=== PATIENT | female | born 1940 | race Caucasian/White ===

== ENCOUNTER 2017-04-28 10:59 | Inpatient (IN) ==
[2017-04-28] MEDS ORDERED: NITROGLYCERIN SL 0.4 MG TABLET SL PRN (11:10)
[2017-04-28] MEDS ORDERED: ENOXAPARIN 100 MG/ML SYRINGE SUBCUT STA (11:10)
[2017-04-28] MEDS ORDERED: ASPIRIN 325 MG TABLET PO STA (11:10)
[2017-04-28] MEDS ORDERED: ENOXAPARIN 80 MG/0.8 ML SYRINGE SUBCUT ONE (11:12)
[2017-04-28] MEDS ORDERED: MIDAZOLAM 2 MG/2 ML VIAL ONE (11:16)
[2017-04-28] MEDS ORDERED: LIDOCAINE 1%/EPI INJ 20 ML VIAL ONE (11:16)
[2017-04-28] MEDS ORDERED: fentaNYL 100 MCG/2 ML VIAL ONE (11:16)
[2017-04-28] MEDS ORDERED: HEPARIN/NACL 0.9% 2 UNITS/ML 1,500 ML IV ONE (11:16)
--- NOTE | 2017-04-28 11:23 | Emergency Department Note ---
Andriy Cheney Hilary, am scribing for, and in the presence of, Kaveh Figueroa MD 11:14. Henry Cheney Phillip K, MD, personally performed the services described in this documentation, ascribed by Isamar Ashraf in my presence, and it is both accurate and complete . Arrival - Arrival Chief Complaint: Chest Pain Stated Complaint: Chest Pain ED Nursing Triage Note: Patient presents via EMS from home with a complaint of chest pain that started this morning at 9am while she was doing house work. States she got short of breath. Took ASA 81 mg PO, then 2 additional 325mg PO ED EDUCATIONAL AIDE of EMS. EMS administered 2 nitro but she states it only helped "a little. Described as pressure in nature throbbing sensation. Denies nausea or vomiting. 2 MS in the past no stents Mode of Arrival: Stretcher Limitations: No Limitations Source: Patient, RN Notes Reviewed - History of Present Illness HPI Narrative: Pt is a 76 y/o female brought to the ED via EMS with c/o chest pain which onset 0900. Pt states that she was doing light house work when her symptoms started. She confirms SOB and Chest pain that radiates to both shoulders and down both arms but denies nausea, vomiting or diaphoresis. Pt had a Heart Attack in 2000 but no Hx of stents or bypass. No other complaints or problems stated in the ED. Onset (ago): hour(s) Consistency: constant Severity: moderate Severity scale (1-10): 3 Quality: other (throbbing) Date of Last Menstrual Period: Hyst Allergies/Adverse Reactions: Allergies Allergy/AdvReac Type Severity Reaction Status Date / Time Sulfa (Sulfonamide Allergy Swelling Verified 03/15/15 11:58 Antibiotics) of Lip/Tongue/Throat Home Medications: Home Medications Medication Instructions Recorded Confirmed Type Aspirin [Ecotrin] 81 mg PO DAILY 03/15/15 04/15/16 History Carvedilol [Coreg] 12.5 mg PO BID 03/15/15 04/15/16 History Cyanocobalamin Tab [Vitamin B12 2,500 meq PO DAILY 03/15/15 04/15/16 History Tab] Diltiazem Cd Cap [Cardizem CD] 180 mg PO DAILY 03/15/15 04/15/16 History Isosorbide Mononitrate [Imdur] 30 mg PO DAILY 03/15/15 04/15/16 History Potassium Chloride Cap/Tab [K Dur] 10 meq PO DAILY 03/15/15 04/15/16 History Pregabalin [Lyrica] 150 mg PO TID 03/15/15 04/15/16 History Simvastatin [Zocor] 20 mg PO DAILY 03/15/15 04/15/16 History buPROPion [Wellbutrin] 100 mg PO BID 03/15/15 04/15/16 History Clopidogrel [Plavix] 75 mg PO DAILY tablet 05/04/15 04/15/16 Rx Esomeprazole Magnesium [Nexium] 40 mg PO DAILY 07/25/15 04/15/16 History Docusate Sodium Cap [Colace Cap] 200 mg PO BEDTIME 04/15/16 04/15/16 History Oxycodone HCl/Acetaminophen 10 - 325 mg PO Q6H 04/15/16 04/15/16 History [Percocet 10-325 mg Tablet] Hydrocortisone Tab [Cortef Tab] 15 mg PO QPM #0 tablet 04/16/16 Rx Hydrocortisone Tab [Cortef Tab] 25 mg PO QAM #0 tablet 04/16/16 Rx oxyCODONE/ACETAMINOPHEN 5-325 2 tablet PO Q6H PRN #0 tablet 04/16/16 Rx [Percocet 5-325] traMADol TAB [Ultram] 50 mg PO BID tablet 04/16/16 Rx Review of System - Review of System 12 point system: reviewed and no additional remarkable complaints except as stated - Review of System Constitutional: Absent: diaphoresis, fever Respiratory: Present: respiratory distress (SOB). Absent: cough Cardiovascular: Present: chest pain Gastrointestinal: Absent: nausea, vomiting Medical,Surgical,& Family Hx - Medical History Cardio: History of: CAD (status post angioplasty twice), Hypertension, MS Psychological: History of: Depression Neurology: No history of: Seizures Endocrine: History of: Adrenal Disease (Kevin's disease), Dyslipidemia, Endocrine Problems (Addisons, Fibromyalgia) Rheumatology: History of;: Rheumatological Problems (chronic back pain) Gastrointestinal: History of: GERD Musculoskeletal: History of: Musculoskeletal Problems (chronic back pain) - Surgical History Neurologic Surgeries: Patient denies: Neurologic Surgery Reproductive Surgeries: Surgical HX of;: Genitourinary Surgery (bladder suspension and rectocele surgery), Gynecologic Surgery, Hysterectomy (PARTIAL HYSTERECTOMY) - Family History Family History: Reports;: Family Cancer, Family Heart Disease, Family Hypertension - Social History Smoking Status: Never smoker Frequency of Alcohol Use: None Type of Drug Use: None Exam Vital Signs: Vital Signs Temperature 97.9 F 04/28/17 11:00 Pulse Rate 70 04/28/17 11:00 Respiratory Rate 18 04/28/17 11:00 O2 Sat by Pulse Oximetry 96 04/28/17 11:00 - General General appearance: alert, in no apparent distress - Head Head exam: Present: atraumatic, normocephalic - Eye Eye exam: Present: normal appearance, PERRL, EOMI - ENT ENT exam: Present: mucous membranes moist, TM's normal bilaterally. Absent: mucous membranes dry - Neck Neck exam: Present: full ROM, trachea midline. Absent: tenderness - Chest Chest inspection: Present: symmetric chest wall rise. Absent: tenderness - Respiratory Respiratory exam: Present: normal lung sounds bilaterally. Absent: respiratory distress - Cardiovascular Cardiovascular exam: Present: regular rate, normal rhythm, normal heart sounds. Absent: murmur, rubs, gallop - Abdominal Exam Abdominal exam: Present: soft, normal bowel sounds. Absent: distention, tenderness - Extremities Exam Extremities exam: Present: full ROM. Absent: tenderness - Back Exam Back exam: Present: full ROM. Absent: tenderness - Neurological Exam Neurological exam: Present: alert, oriented X3, CN II-XII intact. Absent: motor sensory deficit - Psychiatric Psychiatric exam: Present: normal affect, normal mood - Skin Skin exam: Present: warm, dry, intact, normal color. Absent: rash Course Course Narrative: All labs and x-ray are presently pending. Dr. Orona saw patient in the ED within several minutes of my consult. She will be taken straight to the [facility]. Results - EKG EKG results: interpreted by ERMRadha, sinus rhythm (ST elevation MS laterally and possibly inferiorly) Disposition Clinical Impression: ST elevation myocardial infarction (STEMI) Case discussed with: patient, patient's family Disposition: Still a Patient Condition: Guarded
[2017-04-28] MEDS ORDERED: MORPHINE 10 MG/1 ML VIAL ONE (11:27)
[2017-04-28 11:28] LABS: Basophils % 0.3 % (0.0-0.8); Eosinophils % 0.2 % (0.00-10.9); Hematocrit 41.1 VOL% (35.7-47.0); Hemoglobin 13.6 GM/DL (12.0-16.0); Immature Granulocytes % 0.6 %; Immature Granulocytes Absolute 0.06 #; Lymphocytes # 1.1 10*3/uL (1.4-4.0); Lymphocytes % 11.6 % (21.3-54.2); Mean Corpuscular HGB Conc 33.1 GM/DL (32-36); Mean Corpuscular Hemoglobin 34 PG (27-34); Mean Corpuscular Volume 102.8 FL (87-102); Mean Platelet Volume 9.7 FL (9.6-12.0); Monocytes # 0.5 10*3/uL (0.11-0.8); Monocytes % 4.9 % (1.7-12.7); Neutrophils # 7.7 10*3/uL (1.4-7.4); Neutrophils % 82.4 % (38.7-73.9); Platelet Count 267 T/CUMM (130-400); Red Cell Distribution Width 12.6 % (9.3-17.3); White Blood Count 9.4 T/CUMM (4-12)
[2017-04-28] MEDS ORDERED: EPTIFIBATIDE 75 MG/100 ML BOTTLE IV ONE (11:38)
[2017-04-28] MEDS ORDERED: EPTIFIBATIDE 20,000 MCG/10 ML VIAL ONE (11:38)
[2017-04-28] MEDS ORDERED: NITROGLYCERIN DRIP 50 MG/250 ML BOTTLE IV SCH (11:38)
[2017-04-28] MEDS ORDERED: ENOXAPARIN 60 MG/0.6 ML SYRINGE ONE (11:40)
[2017-04-28] MEDS: EPTIFIBATIDE 75 MG/100 ML BOTTLE IV SCH ×2 (11:46→19:51)
[2017-04-28] MEDS ORDERED: TICAGRELOR 90 MG TABLET ONE (11:54)
[2017-04-28 12:06] LABS: Albumin 3.7 G/DL (3.4-5.0); Bilirubin,Total 0.9 MG/DL (0.2-1.0); Calcium 9.2 MG/DL (8.5-10.1); Magnesium 2.5 MG/DL (1.8-2.4); Osmolality,Calculated 281.1 MOS/KG (273-304); Potassium 3.9 MMOL/L (3.5-5.1); Total Protein 6.7 G/DL (6.4-8.3)
--- NOTE | 2017-04-28 12:37 | Cardiac Catheterization ---
Date of Procedure:: 04/28/17 Pre-op Diagnosis: 76-year-old presents with chest discomfort [address] elevation in the inferolateral leads for emergent evaluation and intervention if possible/indicated Post-op diagnosis: same Procedure: Clinical summary: 76-year-old lady with a history of coronary disease presents with ST elevation in the inferolateral leads consistent with an acute inferolateral myocardial infarction. She is for emergent evaluation and PCI if indicated. Description procedure Procedure performed: 1: Left heart catheterization 2: Coronary angiography 3: Attempted wiring of distal LAD which was aborted due to severe tortuosity and given the distal nature of the lesion not felt to be amenable to PCI 4: Left ventriculography 5: Abdominal aortography 6: Right femoral sheath angiography 7: Angio-Seal closure right femoral arteriotomy site Description of procedure: After obtaining informed consent the patient brought to the [facility] Analyst emergently where the right groin was prepped and draped in the usual sterile manner. Using intravenous sedation and local anesthesia a needle was inserted into the right femoral artery without difficulty and a 6 Kosovan sheath was positioned without difficulty. In a.m. Juan M right coronary catheter was advanced over guidewire under fluoroscopic control deviation aorta where the right coronary was engaged and multiple angiograms the right coronary taken multiple views. After adequate angiograms the right coronary obtained this catheter was withdrawn and exchanged over guidewire for a Dulce left guide. Multiple angiograms of the left coronary were undertaken multiple views. This catheter was manipulated into the ostium of the left main using fluoroscopy. After adequate angiograms left coronary obtained this catheter was used to attempt passing a 014 BMW wire to the distal LAD where the occlusion was noted. After multiple attempts we felt that the return on wire placement into the distal LAD was not worth the potential risk related to the wire damage of the vessel proximally. There were multiple 180 bends proximal to the occlusion which would in my opinion not have allowed balloon placement across the area of occlusion. For that reason the wire was removed. Repeat angiography confirmed no evidence of proximal dissection with JOY grade III flow down the vessel noted. The occlusion appeared to be improving somewhat with Integrilin. The patient's pain was easing at the time of aborting the PCI. Patient then underwent removal of the guide catheter over a wire and a pigtail ventriculographic catheter was advanced over guidewire under fluoroscopic control to the ascending aorta where was passed across the aortic valve and ventriculography was obtained in the REYES projection. After completion of ventriculography, pullback was obtained from the ventricle to the aorta and the catheter was pulled back to the level of the diaphragm where 35 cc of contrast were injected at 12 cc/s to assess the abdominal aortic aneurysm. After completion of this injection this catheter was removed over a wire. The patient then underwent right femoral sheath angiography which demonstrated anatomy appropriate for Angio-Seal closure. This was performed without difficulty. Hemostasis was obtained. The patient then after appropriate observation was transferred to the CCU in stable condition. Hemodynamics: Please see coming data sheet Coronary arteriography: Right coronary artery: The right coronary is a large dominant vessel it possesses no significant lesions through its course. The branches of the right coronary likewise are free of significant obstructing lesions. Left coronary artery: Left main coronary is well-developed and free of significant obstructing lesions. The circumflex coronary artery is a large nondominant vessel that possesses no significant lesions through its course. The branches of the circumflex likewise are free of significant obstructing lesions Left anterior descending coronary is a large vessel that extends to the apex of the ventricle. In the distal portion of the LAD there is a total occlusion with very faint filling of the apical portion of the LAD noted. This is a very tortuous and angulated vessel through its proximal and mid one third. There are multiple 180 bends noted. There is no filling of the LAD beyond the apical portion of the LAD. Attempted PCI: We were able to pass a BMW wire to the proximal segment of the occlusion but because of multiple severely angulated segments we elected to abort the procedure as it was unlikely going to be any significant chance of getting a balloon to the area of stenosis. Left ventriculography: After injection of contrast left ventricle is known to be of normal size with an area of apical marked hypo-/akinesis. Overall ejection fraction measures in the 50-55% range. Mitral and aortic structures appear normal by ventriculography. Abdominal aortography: After injection of contrast into the more proximal abdominal aorta there appears to be marked angulation of the abdominal aorta related to the patient's known scoliosis. She has an aneurysm of the abdominal aorta below the level of the renal arteries which appears to be fusiform and moderate in size. Right femoral sheath angiography: After injection of contrast of the right femoral arterial sheath it appears to enter the common femoral above the bifurcation. No significant disease in the distal iliac, common femoral or bifurcation be noted based on this limited angiographic study. Conclusions: 1: Occlusion of the apical portion of the LAD not amenable to PCI for continued medical therapy 2: No other significant occlusive coronary disease noted of the right coronary or LAD/circumflex 3: Apical hypo-/akinesis ejection fraction in the 55% range 4: Fusiform abdominal aortic aneurysm for continued surveillance 5: Angio-Seal closure right femoral arteriotomy site Discussion and recommendations: This patient presents with an acute inferolateral myocardial infarction related to occlusion of the very distal portion of her LAD. She has severe tortuosity of the vessel with multiple 180 bends. I think the best approach is going to be conservative at this point as the vessel is extremely hard to get a wire to the area occlusion and my plan is to treat this conservatively at this point. I have reviewed with the family and with the patient our plans for continued medical management. Surgeon / Physician: Carlitos Orona - Medications / Follow-up
[2017-04-28] MEDS ORDERED: ONDANSETRON 4 MG/2 ML VIAL IV PRN (12:45)
[2017-04-28] MEDS ORDERED: MAGNESIUM SULF RIDER 2 GM in PREMIX 1 EACH IV PRN (12:45)
--- NOTE | 2017-04-28 13:05 | EKG Report ---
Stationary ECG Study [facility] Test Date: 04/28/2017 1:02:55 PM Pat Name: EDWARD FLORES Department: Room: 130 Gender: F Provider Network Analyst: : 1940 Requested by: Carlitos Orona Order Number: [id number] Reading MD: TARA MALONE Intervals [place] Rate: 63 P: 68 [place]: 184 QRS: 5 QRSD: 101 T: 53 QT: 422 QTc: 429 Interpretive Statements SINUS RHYTHM at [address] ELEVATION, CONSIDER ANTERIOR INJURY ACUTE [place] Electronically Signed On 04-29-17 08:13:29 CDT by TARA MALONE [email or web address]
--- NOTE | 2017-04-28 13:14 | EKG Report ---
Stationary ECG Study [facility] Test Date: 04/28/2017 11:05:40 AM Pat Name: EDWARD FLORES Department: Room: 130 Gender: F Executive Administrator: : 1940 Requested by: Kaveh Guerrero Order Number: [id number] Reading MD: MIKAELA JUAREZ Intervals [place] Rate: 65 P: 38 [place]: 188 QRS: 5 QRSD: 113 T: 70 QT: 402 QTc: 414 Interpretive Statements SINUS RHYTHM MODERATE INTRAVENTRICULAR CONDUCTION DELAY ST ELEVATION, CONSIDER ANTERIOR INJURY ST ELEVATION, CONSIDER INFERIOR INJURY ACUTE [place] THIS PATTERN MAY REPRESENT EARLY REPOLARIZATION. Electronically Signed On 04-29-17 06:32:23 CDT by MIKAELA JUAREZ [email or web address]
[2017-04-28 13:19] LABS: Basophils % 0.3 % (0.0-0.8); Eosinophils % 0.1 % (0.00-10.9); Hematocrit 39.5 VOL% (35.7-47.0); Hemoglobin 12.9 GM/DL (12.0-16.0); Immature Granulocytes % 0.6 %; Immature Granulocytes Absolute 0.05 #; Lymphocytes # 1.2 10*3/uL (1.4-4.0); Lymphocytes % 13.5 % (21.3-54.2); Mean Corpuscular HGB Conc 32.7 GM/DL (32-36); Mean Corpuscular Hemoglobin 34 PG (27-34); Mean Corpuscular Volume 103.7 FL (87-102); Mean Platelet Volume 9.8 FL (9.6-12.0); Monocytes # 0.3 10*3/uL (0.11-0.8); Monocytes % 3.7 % (1.7-12.7); Neutrophils # 7.3 10*3/uL (1.4-7.4); Neutrophils % 81.8 % (38.7-73.9); Platelet Count 257 T/CUMM (130-400); Red Blood Count 3.81 MC/CUMM (3.8-5.5); Red Cell Distribution Width 12.9 % (9.3-17.3)
--- NOTE | 2017-04-28 13:27 | XRay Report ---
XR chest 1V portable Indication: Chest pain. Comparison: Chest x-ray 04/15/2016 Technique: Portable AP chest was performed. Findings: The heart size appears within normal limits. Mild/moderate ectasia of the thoracic aorta appears stable. Pulmonary vasculature demonstrates no specific abnormality. Hilar structures demonstrate fairly symmetric appearance. The lungs appear clear. Bones and soft tissues demonstrate no evidence of acute pathology. Surgically repaired right humeral neck is stable in appearance. Impression: 1. No evidence of acute pathology. 04/28/2017 1:23 PM PROCEDURE INTERPRETED AT [facility] DEPARTMENT OF RADIOLOGY Final Report Signed by: Dr. Timmy Camarillo
[2017-04-28] MEDS: METOPROLOL TARTRATE 25 MG TABLET PO SCH ×2 (15:07→20:25)
[2017-04-28] MEDS: SODIUM CHLORIDE 0.45% 1,000 ML IV SCH (15:07)
[2017-04-28] MEDS: MORPHINE 2 MG/1 ML SYRINGE IV PRN ×2 (15:08→20:21)
--- NOTE | 2017-04-28 16:45 | Cardiology History & Physical ---
Elaina Cheney April, RN, am scribing for, and in the presence of, Carlitos Orona MD 16:45. Assessment and Plan - Time spent with patient Time spent with patient: Greater than 30 minutes (Due to assessment, planning, documentation, medication review) (1) ST elevation myocardial infarction (STEMI) Status: Acute Assessment and plan: She was on Plavix previously, this will be changed to Brilinta. She was loaded with Brilinta in the [facility] and Integrilin is currently infusing for her routine Brilinta will start in the morning. She will continue a baby aspirin every day. She will also be changed to Crestor 20 mg daily, Lopressor 25 twice daily, and losartan 25 mg daily. Current Visit: Yes (2) Chest pain Status: Resolved Current Visit: Yes (3) Chronic back pain Status: Chronic Current Visit: Yes (4) Coronary artery disease Status: Acute Current Visit: Yes Qualifiers: Coronary Disease-Associated Artery/Lesion type: [place] artery [place] vs. transplanted heart: [place] cross heart (5) Dyslipidemia Status: Chronic Assessment and plan: She is being started on Crestor. Current Visit: No (6) Essential hypertension Status: Acute Assessment and plan: Her medications have been adjusted, her blood pressures been up since arrival. It has improved some at 174/96 currently. Current Visit: No History of Present Illness Chief complaint: Chest pain History of present illness: Recruiting Internship: Dr. Bates PCP: Dr. Savage LATE ENTRY Ms. Lakhani is a 76 year old female who is routinely followed by Dr. Bates with a history of hypertension, CAD, dyslipidemia, GERD, [place] disease, osteoarthritis, neuropathy, and fibromyalgia. 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 She is also status post a second small non-Q-wave VA due to ruptured plaque in the mid LAD in September 2009, this was also treated medically. She had a normal Lexiscan cardiac stress test done in October 2014 with ejection fraction 58%. Other surgical history includes bilateral cataracts, hysterectomy, rectocele, sinus surgery, bladder suspension, back surgeries, left total knee, and right shoulder. Family history is positive for father with hypertension and VA, mother with rheumatoid arthritis, sister with diabetes, and sons with diabetes and cancer. She presented to the emergency department at [facility] this morning with a sharp steady chest pain that began around 9 AM this morning. She said it was in the center of her chest and did radiate to both shoulders and down both arms. She rated it an 8 or 9 on a scale of 1-10. It was also associated with shortness of breath. There were no triggers or alleviators related to these symptoms. She denies any nausea vomiting or diaphoresis with these symptoms. She continued to have chest pain and shortness of breath upon arrival to the emergency department. Chest x-ray showed no acute pathology. Initial troponin was 0.051, all other labs unremarkable. EKG indicated ST elevation in the inferolateral leads consistent with an acute inferolateral myocardial infarction. She was taken emergently to the [facility] with the following findings and recommendations noted: 1: Occlusion of the apical portion of the LAD not amenable to PCI for continued medical therapy 2: No other significant occlusive coronary disease noted of the right coronary or LAD/circumflex 3: Apical hypo-/akinesis ejection fraction in the 55% range 4: Fusiform abdominal aortic aneurysm for continued surveillance 5: Angio-Seal closure right femoral arteriotomy site Discussion and recommendations: This patient presents with an acute inferolateral myocardial infarction related to occlusion of the very distal portion of her LAD. She has severe tortuosity of the vessel with multiple 180 bends. I think the best approach is going to be conservative at this point as the vessel is extremely hard to get a wire to the area occlusion and my plan is to treat this conservatively at this point. I have reviewed with the family and with the patient our plans for continued medical management. Post cath the patient reports that her chest pain has been relieved. She continues to have some shortness of breath, but states that it is much improved. She denies having any palpitations. Bedside monitor currently shows sinus rhythm with heart rates in the 60s. O2 sat is 96% on room air. Current blood pressure 174/96. She currently has nitroglycerin and Integrilin infusing. Right groin is stable with no evidence of bleeding or hematoma. 2+ pedal pulses present. Troponin done post-cath 0.355. CBC post cath was stable. This patient has apical myocardial infarction related to occlusion of the distal LAD for continued medical therapy. I have discussed in detail the particulars of this case and I have examined the patient and reviewed the patient's chart both current and old. I was directly involved in the patient's evaluation and management and I completely agree with Mónica Delaney RN regarding this patient's evaluation and treatment plan. Home Medications Medication Instructions Recorded Confirmed Type Aspirin [Ecotrin] 81 mg PO DAILY 03/15/15 04/28/17 History Carvedilol [Coreg] 12.5 mg PO BID 03/15/15 04/28/17 History Cyanocobalamin Tab [Vitamin B12 2,500 meq PO DAILY 03/15/15 04/28/17 History Tab] Diltiazem Cd Cap [Cardizem CD] 180 mg PO DAILY 03/15/15 04/28/17 History Isosorbide Mononitrate [Imdur] 30 mg PO DAILY 03/15/15 04/28/17 History Potassium Chloride Cap/Tab [K Dur] 10 meq PO DAILY 03/15/15 04/28/17 History Pregabalin [Lyrica] 150 mg PO TID 03/15/15 04/28/17 History Simvastatin [Zocor] 20 mg PO DAILY 03/15/15 04/28/17 History buPROPion [Wellbutrin] 100 mg PO BID 03/15/15 04/28/17 History Clopidogrel [Plavix] 75 mg PO DAILY tablet 05/04/15 04/28/17 Rx Oxycodone HCl/Acetaminophen 10 - 325 mg PO Q6H 04/15/16 04/28/17 History [Percocet 10-325 mg Tablet] Hydrocortisone Tab [Cortef Tab] 15 mg PO QPM #0 tablet 04/16/16 04/28/17 Rx Hydrocortisone Tab [Cortef Tab] 25 mg PO QAM #0 tablet 04/16/16 04/28/17 Rx Pantoprazole Tab [Protonix Tab] 40 mg PO DAILY 04/28/17 04/28/17 History Allergies Allergy/AdvReac Type Severity Reaction Status Date / Time Sulfa (Sulfonamide Allergy Swelling Verified 03/15/15 11:58 Antibiotics) of Lip/Tongue/Throat - Constitutional Constitutional: Present: as per HPI - EENT Eyes: Present: requires corrective lense. Absent: blurry vision Ears: Present: tinnitus. Absent: decreased hearing, ear pain Nose, mouth and throat: Present: headache(s) (Sinus), neck pain, sinus pressure. Absent: dysphagia, epistaxis, sore throat - Cardiovascular Cardiovascular: Present: chest pain at rest, chest pain with activity, dyspnea, dyspnea on exertion, radiating jaw, neck or arm pain. Absent: diaphoresis, edema, lightheadedness, orthopnea, palpitations - Respiratory Respiratory: Present: dyspnea, dyspnea on exertion. Absent: cough, hemoptysis, wheezing - Gastrointestinal Gastrointestinal: Present: constipation. Absent: abdominal pain, diarrhea, hematemesis, hematochezia, melena, nausea, vomiting - Genitourinary Genitourinary: Absent: dysuria, hematuria - Musculoskeletal Musculoskeletal: Present: back pain, limited range of motion, muscle weakness - Neurological Neurological: Present: abnormal gait, headache(s). Absent: abnormal speech, confusion, dizziness, frequent falls, syncope - Psychiatric Psychiatric: Absent: anxiety, depression - Endocrine Endocrine: Present: fatigue - Hematologic/Lymphatic Hematologic/Lymphatic: Present: easy bruising. Absent: easy bleeding Medical,Surgical,& Family Hx - Medical History Cardio: History of: CAD, Hypertension, VA Endocrine: History of: Adrenal Disease (Holland's disease), Dyslipidemia, Endocrine Problems (Add[place], Fibromyalgia) Rheumatology: History of;: Rheumatological Problems (chronic back pain) Respiratory: History of: Bronchitis, Obstructive Sleep Apnea Gastrointestinal: History of: GERD Musculoskeletal: History of: Musculoskeletal Problems (chronic back pain) - Surgical History Cardiac Surgeries: Sugical HX of: Cardiac Catheterization HEENT Surgeries: Surgical HX of: Eye Surgery (Bilateral cataracts) Reproductive Surgeries: Surgical HX of;: Genitourinary Surgery (bladder suspension and rectocele surgery), Hysterectomy (PARTIAL HYSTERECTOMY) Orthopedic Surgeries: Surgical HX of;: Orthopedic Surgery (Right shoulder), Spinal Surgery (Back), Total Knee Replacement (Left) - Family History Family History: Reports;: Family Cancer (Son with prostate cancer), Family Diabetes (Son and sister), Family Heart Disease (Father), Family Hypertension ( Father) - Social History Smoking Status: Never smoker Have you smoked in the last 12 months: No Frequency of Alcohol Use: None Type of Drug Use: None Marital Status: Lives With:: Spouse Functional capacity: uses cane/walker Cardiology Physical Exam - Constitutional Vitals: Vital Signs Temp Pulse Resp BP Pulse Ox 97.9 F 72 20 176/107 98 04/28/17 11:00 04/28/17 11:15 04/28/17 11:15 04/28/17 11:15 04/28/17 11:15 Intake and Output 04/28/17 04/28/17 04/28/17 06:59 14:59 22:59 Other: Weight 162 lb Patient Weight 04/29/17 06:59 Weight 162 lb General appearance: no acute distress, over weight - Head Head exam: Absent: abrasion, hematoma, laceration - Eye Eye exam: Absent: periorbital swelling, laceration to eyelids Pupils: Present: RENEA - Respiratory Respiratory exam: Present: clear to auscultation bilaterally. Absent: accessory muscle use, chest wall tenderness - Cardiovascular Cardiovascular exam: Present: regular rate and rhythm. Absent: diastolic murmur , rubs, systolic murmur - GI/Abdominal GI/Abdominal exam: Present: normal bowel sounds, soft. Absent: distended, tenderness - Extremities Exam Extremities exam: Present: other (Right groin cath access site without evidence of bleeding or hematoma). Absent: calf tenderness, edema - Neurological Exam Neurological exam: Present: alert, oriented X3 - Psychiatric Psychiatric exam: Present: normal affect, normal mood - Skin Skin exam: Present: warm, dry Result/EKG - Labs CBC & BMP: 04/28/17 13:05 04/28/17 11:13 Lab Results: I have reviewed the past 24 hour labs Labs: Laboratory Results - last 24 hr 04/28/17 04/28/17 04/28/17 11:13 11:13 11:13 WBC 9.4 RBC 4.00 Hgb 13.6 Hct 41.1 MCV 102.8 H MCH 34 MCHC 33.1 RDW 12.6 Plt Count 267 MPV 9.7 Neut % (Auto) 82.4 H Lymph % (Auto) 11.6 L [place] % (Auto) 4.9 Eos % (Auto) 0.2 Baso % (Auto) 0.3 Neut # (Auto) 7.7 H Lymph # (Auto) 1.1 L [place] # (Auto) 0.5 Eos # (Auto) 0.0 Baso # (Auto) 0.0 Immature Gran % 0.6 Nucleated RBC % 0.0 Immature Gran # 0.06 Nucleated RBCs # 0.00 Immature Plt Fraction 0.0 Sodium 142 Potassium 3.9 Chloride 109 H Carbon Dioxide 28 Anion Gap 8.9 BUN 10 Creatinine 0.70 GFR Calculation 87 BUN/Creatinine Ratio 14.00 Glucose 96 Calculated Osmolality 281.1 Calcium 9.2 Magnesium 2.5 H Total Bilirubin 0.90 AST 18 ALT 15 Alkaline Phosphatase 89 Troponin I 0.051 H Total Protein 6.7 Albumin 3.7 Globulin 3.0 Albumin/Globulin Ratio 1.2 04/28/17 04/28/17 13:05 13:05 WBC 9.0 RBC 3.81 Hgb 12.9 Hct 39.5 MCV 103.7 H MCH 34 MCHC 32.7 RDW 12.9 Plt Count 257 MPV 9.8 Neut % (Auto) 81.8 H Lymph % (Auto) 13.5 L [place] % (Auto) 3.7 Eos % (Auto) 0.1 Baso % (Auto) 0.3 Neut # (Auto) 7.3 Lymph # (Auto) 1.2 L [place] # (Auto) 0.3 Eos # (Auto) 0.0 Baso # (Auto) 0.0 Immature Gran % 0.6 Nucleated RBC % 0.0 Immature Gran # 0.05 Nucleated RBCs # 0.00 Immature Plt Fraction 0.0 Sodium Potassium Chloride Carbon Dioxide Anion Gap BUN Creatinine GFR Calculation BUN/Creatinine Ratio Glucose Calculated Osmolality Calcium Magnesium Total Bilirubin AST ALT Alkaline Phosphatase Troponin I 0.355 H D Total Protein Albumin Globulin Albumin/Globulin Ratio - Diagnostic Findings Procedure: Chest x-ray: report reviewed by me - EKG EKG results: interpreted by me EKG shows: sinus rhythm Yeyo Cheney Wesley, MD, personally performed the services described in this documentation, ascribed by Mónica Delaney RN in my presence, and it is both accurate and complete 645 .
[2017-04-28] MEDS ORDERED: cloNIDine 0.1 MG TABLET PO PRN (18:13)
[2017-04-28] MEDS: HYDROCORTISONE 10 MG TABLET PO SCH (19:26)
[2017-04-28] MEDS: cloNIDine 0.1 MG TABLET PO PRN (19:26)
[2017-04-28] MEDS: buPROPion 100 MG TABLET PO SCH (20:22)
[2017-04-28] MEDS: PREGABALIN 75 MG CAPSULE PO SCH (20:22)
[2017-04-28] MEDS ORDERED: ROSUVASTATIN 20 MG TABLET PO SCH (21:00)
[2017-04-28] MEDS: ACETAMINOPHEN 325 MG TABLET PO PRN (23:45)
[2017-04-29] MEDS: MORPHINE 2 MG/1 ML SYRINGE IV PRN ×2 (01:15→09:35)
[2017-04-29] MEDS: ACETAMINOPHEN 325 MG TABLET PO PRN (03:34)
[2017-04-29] MEDS: cloNIDine 0.1 MG TABLET PO PRN (03:34)
[2017-04-29] MEDS: SODIUM CHLORIDE 0.45% 1,000 ML IV SCH ×2 (03:43→18:43)
[2017-04-29] MEDS: EPTIFIBATIDE 75 MG/100 ML BOTTLE IV SCH ×3 (03:44→20:13)
[2017-04-29 03:48] LABS: Basophils % 0.4 % (0.0-0.8); Eosinophils % 0.3 % (0.00-10.9); Hematocrit 36.7 VOL% (35.7-47.0); Hemoglobin 12.1 GM/DL (12.0-16.0); Immature Granulocytes % 0.4 %; Immature Granulocytes Absolute 0.04 #; Lymphocytes # 1.7 10*3/uL (1.4-4.0); Lymphocytes % 17.3 % (21.3-54.2); Mean Corpuscular Hemoglobin 34 PG (27-34); Mean Corpuscular Volume 101.9 FL (87-102); Monocytes # 0.7 10*3/uL (0.11-0.8); Monocytes % 7.2 % (1.7-12.7); Neutrophils # 7.4 10*3/uL (1.4-7.4); Neutrophils % 74.4 % (38.7-73.9); Platelet Count 239 T/CUMM (130-400); Red Cell Distribution Width 12.7 % (9.3-17.3)
[2017-04-29 04:22] LABS: Calcium 8.1 MG/DL (8.5-10.1); Osmolality,Calculated 279.1 MOS/KG (273-304); Potassium 3.3 MMOL/L (3.5-5.1)
[2017-04-29] MEDS: POTASSIUM CHLORIDE 20 MEQ TABLET PO PRN ×2 (04:39→06:07)
[2017-04-29 04:44] LABS: Risk Ratio 2.82
[2017-04-29] MEDS: ASPIRIN EC 81 MG TABLET PO SCH (08:21)
[2017-04-29] MEDS: SIMVASTATIN 20 MG TABLET PO SCH (08:21)
[2017-04-29] MEDS: DILTIAZEM CD 180 MG CAPSULE PO SCH (08:21)
[2017-04-29] MEDS: TICAGRELOR 90 MG TABLET PO SCH ×2 (08:21→20:12)
[2017-04-29] MEDS: POTASSIUM CHLORIDE 10 MEQ TABLET PO SCH (08:22)
[2017-04-29] MEDS: buPROPion 100 MG TABLET PO SCH ×2 (08:22→20:12)
[2017-04-29] MEDS: METOPROLOL TARTRATE 25 MG TABLET PO SCH ×2 (08:22→20:12)
[2017-04-29] MEDS: PANTOPRAZOLE 40 MG TABLET PO SCH (08:22)
[2017-04-29] MEDS: LOSARTAN 25 MG TABLET PO SCH (08:22)
[2017-04-29] MEDS: PREGABALIN 75 MG CAPSULE PO SCH ×3 (08:23→20:13)
[2017-04-29] MEDS: CYANOCOBALAMIN 500 MCG TABLET PO SCH (08:23)
[2017-04-29] MEDS ORDERED: PANTOPRAZOLE 40 MG TABLET PO SCH (09:00)
[2017-04-29] MEDS: oxyCODONE/ACETAMINOPHEN 5-325 MG TABLET PO PRN ×2 (11:34→18:47)
--- NOTE | 2017-04-29 11:38 | Cardiology Progress Note ---
Elaina Cheney April, RN, am scribing for, and in the presence of, Carlitos Orona MD 11:37. Assessment and Plan (1) ST elevation myocardial infarction (STEMI) Status: Acute Assessment and plan: She is now on Brilinta 90 mg p.o. twice daily. She will continue a baby aspirin every day and Zocor 20 mg daily. Current Visit: Yes (2) Chest pain Status: Resolved Assessment and plan: She denies any chest pain this morning. Current Visit: Yes (3) Chronic back pain Status: Chronic Assessment and plan: She continues to complain of back and neck pain from lying in bed. We will plan for her to be able to sit up later this morning and possibly ambulate this afternoon if she does well. Hopefully this will improve her back and neck discomfort. Current Visit: Yes (4) Coronary artery disease Status: Acute Current Visit: Yes Qualifiers: Coronary Disease-Associated Artery/Lesion type: [place] artery [place] vs. transplanted heart: [place] heart (5) Dyslipidemia Status: Chronic Assessment and plan: She is on Zocor 20 mg daily. Current Visit: No (6) Essential hypertension Status: Acute Assessment and plan: We will continue to monitor her blood pressure and adjust medications appropriately. Current Visit: No (7) Hypokalemia Status: Acute Assessment and plan: This has been replaced per protocol, we will continue to monitor. Current Visit: Yes Cardiology - PN: Subj Interval history: Twister Operator: Dr. Bates PCP: Dr. Savage SUMMARY: Ms. Lakhani is a 76 year old female who is routinely followed by Dr. Bates with a history of hypertension, CAD, dyslipidemia, GERD, [place] disease , osteoarthritis, neuropathy, and fibromyalgia. 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 She is also status post a second small non-Q-wave PR due to ruptured plaque in the mid LAD in September 2009, this was also treated medically. She had a normal Lexiscan cardiac stress test done in October 2014 with ejection fraction 58%. Other surgical history includes bilateral cataracts, hysterectomy, rectocele, sinus surgery, bladder suspension, back surgeries, left total knee, and right shoulder. Family history is positive for father with hypertension and PR, mother with rheumatoid arthritis, sister with diabetes, and sons with diabetes and cancer. She presented to the emergency department at [facility] on the morning of April 28 with a sharp steady chest pain that began around 9 AM. She said it was in the center of her chest and did radiate to both shoulders and down both arms. She rated it an 8 or 9 on a scale of 1- 10. It was also associated with shortness of breath. There were no triggers or alleviators related to these symptoms. She denies any nausea vomiting or diaphoresis with these symptoms. She continued to have chest pain and shortness of breath upon arrival to the emergency department. Chest x-ray showed no acute pathology. Initial troponin was 0.051, all other labs unremarkable. EKG indicated ST elevation in the inferolateral leads consistent with an acute inferolateral myocardial infarction. She was taken emergently to the [facility] with the following findings and recommendations noted: 1: Occlusion of the apical portion of the LAD not amenable to PCI for continued medical therapy 2: No other significant occlusive coronary disease noted of the right coronary or LAD/circumflex 3: Apical hypo-/akinesis ejection fraction in the 55% range 4: Fusiform abdominal aortic aneurysm for continued surveillance 5: Angio-Seal closure right femoral arteriotomy site Discussion and recommendations: This patient presents with an acute inferolateral myocardial infarction related to occlusion of the very distal portion of her LAD. She has severe tortuosity of the vessel with multiple 180 bends. I think the best approach is going to be conservative at this point as the vessel is extremely hard to get a wire to the area occlusion and my plan is to treat this conservatively at this point. I have reviewed with the family and with the patient our plans for continued medical management. April 29, 2017: Ms. Lakhani is seen in the CCU resting in bed. She denies any chest pain, but states she does continue to have episodes of shortness of breath. She complains of neck and back pain from lying in the bed. She has had some oozing from her right groin cath site. No evidence of hematoma at site , good pedal pulses. Her diastolic pressures have continued to be elevated, but are somewhat better this morning, currently 136/88. classroom monitor currently shows sinus rhythm with heart rate in the 60s. O2 sat of 95% on room air. Her potassium was 3.3 this morning, this has been replaced per protocol. Echocardiogram to be done this morning. Patient is stable post myocardial infarction. She is not having currently any problems related to congestive heart failure recurring chest pain. She does have a fusiform abdominal aortic aneurysm which will need to be followed. She sees Dr. upton who is her primary warp scouring vat tender. I think overall she is stable and doing reasonably well. She has had some minimal ooze from her cath site and we are applying a pressure dressing currently. She is now without problems and hopefully for transfer to floor later today. I have discussed in detail the particulars of this case and I have examined the patient and reviewed the patient's chart both current and old. I was directly involved in the patient's evaluation and management and I completely agree with Mónica Delaney RN regarding this patient's evaluation and treatment plan. Exam (Progress Note) - Constitutional Vitals: Period Temp Pulse Resp BP Sys/Z[place]ala Pulse Ox Last 24 Hr 97.6 F-98.4 F 56-78 15-58 109-177/72-107 93-98 Exam: General appearance: no acute distress, over weight - Head Head exam: Absent: abrasion, hematoma, laceration - Eye Eye exam: Absent: periorbital swelling, laceration to eyelids Pupils: Present: RENEA - Respiratory Respiratory exam: Present: clear to auscultation bilaterally. Absent: accessory muscle use, chest wall tenderness - Cardiovascular Cardiovascular exam: Present: regular rate and rhythm. Absent: diastolic murmur , rubs, systolic murmur - GI/Abdominal GI/Abdominal exam: Present: normal bowel sounds, soft. Absent: distended, tenderness - Extremities Exam Extremities exam: Present: other (Right groin cath access site has eased some, but without evidence of hematoma-good pedal pulses). Absent: calf tenderness, edema - Neurological Exam Neurological exam: Present: alert, oriented X3 - Psychiatric Psychiatric exam: Present: normal affect, normal mood - Skin Skin exam: Present: warm, dry Result/EKG - Labs CBC & BMP: 04/29/17 03:39 04/29/17 08:39 Lab Results: I have reviewed the past 24 hour labs Labs: Laboratory Results - last 24 hr 04/28/17 04/28/17 04/28/17 11:13 11:13 11:13 WBC 9.4 RBC 4.00 Hgb 13.6 Hct 41.1 MCV 102.8 H MCH 34 MCHC 33.1 RDW 12.6 Plt Count 267 MPV 9.7 Neut % (Auto) 82.4 H Lymph % (Auto) 11.6 L [place] % (Auto) 4.9 Eos % (Auto) 0.2 Baso % (Auto) 0.3 Neut # (Auto) 7.7 H Lymph # (Auto) 1.1 L [place] # (Auto) 0.5 Eos # (Auto) 0.0 Baso # (Auto) 0.0 Immature Gran % 0.6 Nucleated RBC % 0.0 Immature Gran # 0.06 Nucleated RBCs # 0.00 Immature Plt Fraction 0.0 Sodium 142 Potassium 3.9 Chloride 109 H Carbon Dioxide 28 Anion Gap 8.9 BUN 10 Creatinine 0.70 GFR Calculation 87 BUN/Creatinine Ratio 14.00 Glucose 96 Calculated Osmolality 281.1 Calcium 9.2 Magnesium 2.5 H Total Bilirubin 0.90 AST 18 ALT 15 Alkaline Phosphatase 89 Troponin I 0.051 H Total Protein 6.7 Albumin 3.7 Globulin 3.0 Albumin/Globulin Ratio 1.2 Triglycerides Cholesterol LDL Cholesterol VLDL Cholesterol HDL Cholesterol Heart Disease Risk Ratio 04/28/17 04/28/17 04/28/17 13:05 13:05 16:01 WBC 9.0 RBC 3.81 Hgb 12.9 Hct 39.5 MCV 103.7 H MCH 34 MCHC 32.7 RDW 12.9 Plt Count 257 MPV 9.8 Neut % (Auto) 81.8 H Lymph % (Auto) 13.5 L [place] % (Auto) 3.7 Eos % (Auto) 0.1 Baso % (Auto) 0.3 Neut # (Auto) 7.3 Lymph # (Auto) 1.2 L [place] # (Auto) 0.3 Eos # (Auto) 0.0 Baso # (Auto) 0.0 Immature Gran % 0.6 Nucleated RBC % 0.0 Immature Gran # 0.05 Nucleated RBCs # 0.00 Immature Plt Fraction 0.0 Sodium Potassium Chloride Carbon Dioxide Anion Gap BUN Creatinine GFR Calculation BUN/Creatinine Ratio Glucose Calculated Osmolality Calcium Magnesium Total Bilirubin AST ALT Alkaline Phosphatase Troponin I 0.355 H D 2.200 H D Total Protein Albumin Globulin Albumin/Globulin Ratio Triglycerides Cholesterol LDL Cholesterol VLDL Cholesterol HDL Cholesterol Heart Disease Risk Ratio 04/28/17 04/29/17 04/29/17 19:10 03:39 03:39 WBC 10.0 RBC 3.60 L Hgb 12.1 Hct 36.7 MCV 101.9 MCH 34 MCHC 33.0 RDW 12.7 Plt Count 239 MPV 10.0 Neut % (Auto) 74.4 H Lymph % (Auto) 17.3 L [place] % (Auto) 7.2 Eos % (Auto) 0.3 Baso % (Auto) 0.4 Neut # (Auto) 7.4 Lymph # (Auto) 1.7 [place] # (Auto) 0.7 Eos # (Auto) 0.0 Baso # (Auto) 0.0 Immature Gran % 0.4 Nucleated RBC % 0.0 Immature Gran # 0.04 Nucleated RBCs # 0.00 Immature Plt Fraction 0.0 Sodium 142 Potassium 3.3 L Chloride 108 H Carbon Dioxide 27 Anion Gap 10.3 BUN 8 Creatinine 0.50 L GFR Calculation 97 BUN/Creatinine Ratio 16.00 Glucose 86 Calculated Osmolality 279.1 Calcium 8.1 L Magnesium 2.0 Total Bilirubin AST ALT Alkaline Phosphatase Troponin I 5.390 H D Total Protein Albumin Globulin Albumin/Globulin Ratio Triglycerides Cholesterol LDL Cholesterol VLDL Cholesterol HDL Cholesterol Heart Disease Risk Ratio 04/29/17 03:39 WBC RBC Hgb Hct MCV MCH MCHC RDW Plt Count MPV Neut % (Auto) Lymph % (Auto) [place] % (Auto) Eos % (Auto) Baso % (Auto) Neut # (Auto) Lymph # (Auto) [place] # (Auto) Eos # (Auto) Baso # (Auto) Immature Gran % Nucleated RBC % Immature Gran # Nucleated RBCs # Immature Plt Fraction Sodium Potassium Chloride Carbon Dioxide Anion Gap BUN Creatinine GFR Calculation BUN/Creatinine Ratio Glucose Calculated Osmolality Calcium Magnesium Total Bilirubin AST ALT Alkaline Phosphatase Troponin I Total Protein Albumin Globulin Albumin/Globulin Ratio Triglycerides 145 Cholesterol 158 LDL Cholesterol 83.0 VLDL Cholesterol 29.0 HDL Cholesterol 56 Heart Disease Risk Ratio 2.82 - EKG EKG results: interpreted by me EKG shows: sinus rhythm Specialty Discharge - Follow Up or Referrals IYeyo Wesley, MD, personally performed the services described in this documentation, ascribed by Mónica Delaney RN in my presence, and it is both accurate and complete 137 .
--- NOTE | 2017-04-29 13:43 | EKG Report ---
Stationary ECG Study [facility] Test Date: 04/28/2017 8:07:55 PM Pat Name: EDWARD FLORES Department: Room: 130 Gender: F Application Developer: : 1940 Requested by: Carlitos Orona Order Number: [id number] Reading MD: CARLITOS ORONA Intervals [place] Rate: 65 P: 89 NV: 211 QRS: -29 QRSD: 84 T: -32 QT: 376 QTc: 388 Interpretive Statements SINUS RHYTHM WITH PROLONGED [place] INTERVAL POSSIBLE ANTERIOR MYOCARDIAL INFARCTION, PROBABLY OLD INFERIOR MYOCARDIAL INFARCTION, PROBABLY OLD INTERPRETATION BASED ON A DEFAULT AGE OF 40 YEARS Electronically Signed On 04-30-17 05:26:03 CDT by CARLITOS ORONA [email or web address]
--- NOTE | 2017-04-29 15:29 | EKG Report ---
Stationary ECG Study [facility] Test Date: 04/29/2017 11:54:49 AM Pat Name: EDWARD FLORES Department: Room: 130 Gender: F Rn First Assistant: : 1940 Requested by: Carlitos Orona Order Number: [id number] Laura MD: CARLITOS ORONA Intervals [place] Rate: 66 P: 81 MD: 202 QRS: -8 QRSD: 125 T: -28 QT: 411 QTc: 425 Interpretive Statements SINUS RHYTHM ANTERIOR MYOCARDIAL INFARCTION, PROBABLY RECENT ACUTE [place] Electronically Signed On 04-30-17 05:27:31 CDT by CARLITOS ORNOA [email or web address]
--- NOTE | 2017-04-29 17:44 | ECHO Report ---
Mabel Lakhani Exam Date: 04/29/2017 07:50 Referring Physician: Technologist: raman Morrison ARDMS, RVT Age: 76 Ht (in): 63 Wt (lb): 162 Gender: F Exam Location: [facility] Echo Indications: Chest pain, unspecified, Essential (primary) hypertension, ST elevation (STEMI) myocardial infarction of unspecified site, CAD, Dyslipidemia BP: 135 / 72 HR: 69 Rhythm: Sinus Technical Quality: Good IMPRESSIONS Normal left ventricular cavity size. Normal left ventricular wall thickness. Left ventricular ejection fraction is estimated at 60 %. The right ventricle is normal in size and function. The right atrium is normal in size. The left atrium is normal in size. Morphologically normal mitral valve without significant stenosis or prolapse. There is no mitral regurgitation. No aortic valve stenosis. Trace to mild aortic valve regurgitation. Tricuspid regurgitation velocities suggest a PAP of 39 mmHg. Morphologically normal tricuspid valve. Trace to mild tricuspid valve regurgitation. Morphologically normal pulmonic valve without significant stenosis. There is no pulmonic regurgitation. Normal pericardium without effusion. Normal ascending aorta dimension. MEASUREMENTS (Male / Female) Normal Values 2D ECHO LV Diastolic Diameter PLAX 4.5 cm 4.2 - 5.9 / 3.9 - 5.3 cm LV Systolic Diameter PLAX 3.3 cm LV Fractional Shortening PLAX 26.4 % IVS Diastolic Thickness 0.9 cm 0.6 - 1.0 / 0.6 - 0.9 cm LVPW Diastolic Thickness 1.0 cm 0.6 - 1.0 / 0.6 - 0.9 cm RV Internal Dim ED PLAX 3.1 cm Aortic Root Diameter 3.3 cm LA Systolic Diameter LX 2.5 cm 3.0 - 4.0 / 2.7 - 3.8 cm DOPPLER TR Peak Velocity 270.0 cm/s TR Peak Gradient 29.2 mmHg FINDINGS Left Ventricle Normal left ventricular cavity size. Normal left ventricular wall thickness. Left ventricular ejection fraction is estimated at 60 %. Right Ventricle The right ventricle is normal in size and function. Right Atrium The right atrium is normal in size. Left Atrium The left atrium is normal in size. Mitral Valve Morphologically normal mitral valve without significant stenosis or prolapse. There is no mitral regurgitation. Aortic Valve No aortic valve stenosis. Trace to mild aortic valve regurgitation. Tricuspid Valve Morphologically normal tricuspid valve. Trace to mild tricuspid valve regurgitation. Tricuspid regurgitation velocities suggest a PAP of 39 mmHg. Pulmonic Valve Morphologically normal pulmonic valve without significant stenosis. There is no pulmonic regurgitation. Pericardium Normal pericardium without effusion. Aorta Normal ascending aorta dimension. Carlitos Orona MD (Electronically Signed) Final Date: 29 April 2017 17:43
[2017-04-29] MEDS: HYDROCORTISONE 10 MG TABLET PO SCH (18:48)
[2017-04-30] MEDS: oxyCODONE/ACETAMINOPHEN 5-325 MG TABLET PO PRN ×4 (01:27→23:37)
[2017-04-30 04:16] LABS: Basophils % 0.3 % (0.0-0.8); Eosinophils % 0.4 % (0.00-10.9); Hematocrit 37.4 VOL% (35.7-47.0); Immature Granulocytes % 0.7 %; Immature Granulocytes Absolute 0.07 #; Lymphocytes # 1.4 10*3/uL (1.4-4.0); Lymphocytes % 14.2 % (21.3-54.2); Mean Corpuscular HGB Conc 32.1 GM/DL (32-36); Mean Corpuscular Hemoglobin 33 PG (27-34); Mean Corpuscular Volume 103.9 FL (87-102); Mean Platelet Volume 10.1 FL (9.6-12.0); Monocytes # 0.8 10*3/uL (0.11-0.8); Monocytes % 8.2 % (1.7-12.7); Neutrophils # 7.2 10*3/uL (1.4-7.4); Neutrophils % 76.2 % (38.7-73.9); Platelet Count 229 T/CUMM (130-400); Red Cell Distribution Width 12.8 % (9.3-17.3); White Blood Count 9.5 T/CUMM (4-12)
[2017-04-30 04:44] LABS: Calcium 8.4 MG/DL (8.5-10.1); Magnesium 2.2 MG/DL (1.8-2.4); Potassium 4.3 MMOL/L (3.5-5.1)
[2017-04-30] MEDS: SODIUM CHLORIDE 0.45% 1,000 ML IV SCH (05:48)
[2017-04-30] MEDS: EPTIFIBATIDE 75 MG/100 ML BOTTLE IV SCH ×2 (05:48→17:22)
[2017-04-30] MEDS: ASPIRIN EC 81 MG TABLET PO SCH (09:18)
[2017-04-30] MEDS: buPROPion 100 MG TABLET PO SCH ×2 (09:19→20:42)
[2017-04-30] MEDS: SIMVASTATIN 20 MG TABLET PO SCH (09:19)
[2017-04-30] MEDS: PANTOPRAZOLE 40 MG TABLET PO SCH (09:20)
[2017-04-30] MEDS: CYANOCOBALAMIN 500 MCG TABLET PO SCH (09:20)
[2017-04-30] MEDS: POTASSIUM CHLORIDE 10 MEQ TABLET PO SCH (09:21)
[2017-04-30] MEDS: METOPROLOL TARTRATE 25 MG TABLET PO SCH ×2 (09:21→20:42)
[2017-04-30] MEDS: LOSARTAN 25 MG TABLET PO SCH (09:22)
[2017-04-30] MEDS: TICAGRELOR 90 MG TABLET PO SCH ×2 (09:23→20:42)
[2017-04-30] MEDS: DILTIAZEM CD 180 MG CAPSULE PO SCH (09:23)
[2017-04-30] MEDS: PREGABALIN 75 MG CAPSULE PO SCH ×3 (09:24→20:46)
[2017-04-30] MEDS: HYDROCORTISONE 10 MG TABLET PO SCH (18:03)
[2017-04-30 18:21] LABS: Apearance,Urine CLEAR (Clear); Bacteria,Urine Few /HPF (Few); Bilirubin,Urine Negative (Negative); Blood, Urine Negative (Negative); Glucose,Urine (UA) Negative (Negative); Ketones,Urine Negative (Negative); Mucus,Urine Occasional /LPF (Occasional); Nitrite,Urine Negative (Negative); Protein,Urine Negative; RBC,Urine 2 /HPF (0-4); Squamous Epithelial Cell,Urine Occasional /HPF (0-10); Urine Color Yellow (Yellow); Urine Specific Gravity 1.016 (1.001-1.035); Urine Urobilinogen < 2.0 EU/DL (0.2-1.0); WBC,Urine 2 /HPF (0-6)
[2017-05-01 04:47] LABS: Basophils % 0.2 % (0.0-0.8); Eosinophils # 0.1 10*3/uL (0.0-0.87); Eosinophils % 0.5 % (0.00-10.9); Hematocrit 41.1 VOL% (35.7-47.0); Hemoglobin 13.2 GM/DL (12.0-16.0); Immature Granulocytes % 0.7 %; Immature Granulocytes Absolute 0.08 #; Lymphocytes # 1.3 10*3/uL (1.4-4.0); Mean Corpuscular HGB Conc 32.1 GM/DL (32-36); Mean Corpuscular Hemoglobin 34 PG (27-34); Mean Corpuscular Volume 104.6 FL (87-102); Mean Platelet Volume 10.2 FL (9.6-12.0); Monocytes # 0.9 10*3/uL (0.11-0.8); Monocytes % 7.7 % (1.7-12.7); Neutrophils # 9.3 10*3/uL (1.4-7.4); Neutrophils % 79.9 % (38.7-73.9); Platelet Count 244 T/CUMM (130-400); Red Blood Count 3.93 MC/CUMM (3.8-5.5); Red Cell Distribution Width 12.7 % (9.3-17.3); White Blood Count 11.6 T/CUMM (4-12)
[2017-05-01 05:25] LABS: Calcium 8.3 MG/DL (8.5-10.1); Magnesium 2.4 MG/DL (1.8-2.4); Osmolality,Calculated 278.5 MOS/KG (273-304); Potassium 4.7 MMOL/L (3.5-5.1)
[2017-05-01] MEDS: oxyCODONE/ACETAMINOPHEN 5-325 MG TABLET PO PRN ×3 (05:31→21:59)
--- NOTE | 2017-05-01 08:16 | Internal Medicine Consult Note ---
Assessment and Plan (1) Coronary artery disease Status: Acute Assessment and plan: 76-year-old female admitted to acute care * STEMI. Patient was taken to [facility] and was treated conservatively. 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 Will add 25 mg in the morning. She has been on this dose for a long time. She does not appear to be adrenal insufficient but that might be contributing to her weakness * Hypertension. Blood pressure is stable * Chronic back pain. She is managed by Dr. Hobson * Fibromyalgia. She has required high doses of Lyrica. * She may benefit from physical therapy and OT. Will consult * I will follow her with you Current Visit: Yes Qualifiers: Coronary Disease-Associated Artery/Lesion type: [place] artery [place] vs. transplanted heart: [place] heart (2) ST elevation myocardial infarction (STEMI) Status: Acute Current Visit: Yes (3) Chronic back pain Status: Chronic Current Visit: Yes (4) Kevin disease Status: Acute Current Visit: No (5) Essential hypertension Status: Acute Current Visit: No (6) Fibromyalgia Status: Acute Current Visit: No History of Present Illness - Data of Consult Patient: known to practice within the last 3 years - Consult Narrative Reason for consult: Medical management History of present illness: Ms. Lakhani is a 76 year old female with history of multiple medical problems including Kevin's disease, hypertension, coronary artery disease, dyslipidemia , GERD, severe neuropathy, fibromyalgia, severe back pain and osteoarthritis and previous myocardial infarction. She was admitted on Friday with chest pain. Patient was found to have a STEMI. She was taken to [facility] Acute Care. She was found to have inferior lateral myocardial infarction related to occlusion of distal portion of her LAD. She has been treated conservatively and has improved over last few days. She is still feeling quite weak. Her main complaint now is her chronic back pain. It has been bothering her especially after being hospitalized. Patient was getting more active previously. She denies any chest pain or shortness of breath. She denies any nausea vomiting or diarrhea. She denies any fever or chills. She lives at home with her . No history of smoking or alcohol use. CC: Carlitos Orona MD - Home Medications and Allergies Home Medications: Home Medications Medication Instructions Recorded Confirmed Type Aspirin [Ecotrin] 81 mg PO DAILY 03/15/15 04/28/17 History Carvedilol [Coreg] 12.5 mg PO BID 03/15/15 04/28/17 History Cyanocobalamin Tab [Vitamin B12 2,500 meq PO DAILY 03/15/15 04/28/17 History Tab] Diltiazem Cd Cap [Cardizem CD] 180 mg PO DAILY 03/15/15 04/28/17 History Isosorbide Mononitrate [Imdur] 30 mg PO DAILY 03/15/15 04/28/17 History Potassium Chloride Cap/Tab [K Dur] 10 meq PO DAILY 03/15/15 04/28/17 History Pregabalin [Lyrica] 150 mg PO TID 03/15/15 04/28/17 History Simvastatin [Zocor] 20 mg PO DAILY 03/15/15 04/28/17 History buPROPion [Wellbutrin] 100 mg PO BID 03/15/15 04/28/17 History Clopidogrel [Plavix] 75 mg PO DAILY tablet 05/04/15 04/28/17 Rx Oxycodone HCl/Acetaminophen 10 - 325 mg PO Q6H 04/15/16 04/28/17 History [Percocet 10-325 mg Tablet] Hydrocortisone Tab [Cortef Tab] 15 mg PO QPM #0 tablet 04/16/16 04/28/17 Rx Hydrocortisone Tab [Cortef Tab] 25 mg PO QAM #0 tablet 04/16/16 04/28/17 Rx Pantoprazole Tab [Protonix Tab] 40 mg PO DAILY 04/28/17 04/28/17 History Allergies/Adverse Reactions: Allergies Allergy/AdvReac Type Severity Reaction Status Date / Time Sulfa (Sulfonamide Allergy Swelling Verified 03/15/15 11:58 Antibiotics) of Lip/Tongue/Throat 12 point system: reviewed and no additional remarkable complaints except as stated (As mentioned in HPI) Medical,Surgical,& Family Hx - Medical History Cardio: History of: CAD, Hypertension, CT Psychological: History of: Depression Neurology: No history of: Seizures Endocrine: History of: Adrenal Disease (Kevin's disease), Dyslipidemia, Endocrine Problems ([place], Fibromyalgia) Rheumatology: History of;: Rheumatological Problems (chronic back pain) Respiratory: History of: Bronchitis, Obstructive Sleep Apnea Gastrointestinal: History of: GERD Musculoskeletal: History of: Musculoskeletal Problems (chronic back pain) - Surgical History Cardiac Surgeries: Sugical HX of: Cardiac Catheterization Neurologic Surgeries: Patient denies: Neurologic Surgery HEENT Surgeries: Surgical HX of: Eye Surgery (Bilateral cataracts) Reproductive Surgeries: Surgical HX of;: Genitourinary Surgery (bladder suspension and rectocele surgery), Gynecologic Surgery, Hysterectomy (PARTIAL HYSTERECTOMY) Orthopedic Surgeries: Surgical HX of;: Orthopedic Surgery (Right shoulder), Spinal Surgery (Back), Total Knee Replacement (Left) - Family History Family History: Reports;: Family Cancer (Son with prostate cancer), Family Diabetes (Son and sister), Family Heart Disease (Father), Family Hypertension ( Father) - Social History Smoking Status: Never smoker Frequency of Alcohol Use: None Type of Drug Use: None Marital Status: Lives With:: Spouse Functional capacity: uses cane/walker Exam (Progress Note) - Constitutional Vitals: Period Temp Pulse Resp BP Sys/Zavala Pulse Ox Last 24 Hr 96.2 F-99.3 F 57-87 16-24 112-157/62-92 93-98 Exam: Examination: GENERAL: NAD. HEENT: PERRLA. EOMI. Mucous membranes are moist. NECK: Neck is supple. No JVD. No carotid bruit. No thyromegaly. CVS: Regular rate and rhythm. S1 and S2 are normal. RESPIRATORY: Lungs are clear. No rales or rhonchi. ABDOMEN: Soft and nontender. Bowel sounds are present. No hepatosplenomegaly. EXT: No edema. Peripheral pulses are present. PERFORATOR LOADER: Patient is awake, alert and oriented to time place and person. Cranial nerves II through XII are grossly intact. Motor strength is 3-4/5 SKIN: Warm and dry. MSK: No obvious deformity. Results - Labs CBC & BMP: 05/01/17 03:37 05/01/17 03:37 Lab Results: I have reviewed the past 24 hour labs Specialty Discharge - Follow Up or Referrals
[2017-05-01] MEDS ORDERED: HYDROCORTISONE 10 MG TABLET PO SCH (09:00)
[2017-05-01] MEDS: METOPROLOL TARTRATE 25 MG TABLET PO SCH ×2 (09:35→21:12)
[2017-05-01] MEDS: CYANOCOBALAMIN 500 MCG TABLET PO SCH (09:35)
[2017-05-01] MEDS: buPROPion 100 MG TABLET PO SCH ×2 (09:35→21:12)
[2017-05-01] MEDS: ASPIRIN EC 81 MG TABLET PO SCH (09:36)
[2017-05-01] MEDS: DILTIAZEM CD 180 MG CAPSULE PO SCH (09:37)
[2017-05-01] MEDS: HYDROCORTISONE 10 MG TABLET PO SCH ×2 (09:37→18:06)
[2017-05-01] MEDS: TICAGRELOR 90 MG TABLET PO SCH ×2 (09:38→21:12)
[2017-05-01] MEDS: LOSARTAN 25 MG TABLET PO SCH (09:38)
[2017-05-01] MEDS: SIMVASTATIN 20 MG TABLET PO SCH (09:38)
[2017-05-01] MEDS: POTASSIUM CHLORIDE 10 MEQ TABLET PO SCH (09:39)
[2017-05-01] MEDS: PANTOPRAZOLE 40 MG TABLET PO SCH (09:39)
[2017-05-01] MEDS: PREGABALIN 75 MG CAPSULE PO SCH ×3 (10:13→21:12)
[2017-05-02 05:19] LABS: Basophils % 0.2 % (0.0-0.8); Eosinophils # 0.1 10*3/uL (0.0-0.87); Eosinophils % 0.8 % (0.00-10.9); Hematocrit 37.7 VOL% (35.7-47.0); Hemoglobin 12.4 GM/DL (12.0-16.0); Immature Granulocytes % 0.7 %; Immature Granulocytes Absolute 0.08 #; Lymphocytes # 1.4 10*3/uL (1.4-4.0); Lymphocytes % 12.4 % (21.3-54.2); Mean Corpuscular HGB Conc 32.9 GM/DL (32-36); Mean Corpuscular Hemoglobin 34 PG (27-34); Mean Corpuscular Volume 102.2 FL (87-102); Monocytes # 0.8 10*3/uL (0.11-0.8); Neutrophils # 8.6 10*3/uL (1.4-7.4); Neutrophils % 78.9 % (38.7-73.9); Platelet Count 230 T/CUMM (130-400); Red Blood Count 3.69 MC/CUMM (3.8-5.5); Red Cell Distribution Width 12.4 % (9.3-17.3); White Blood Count 10.9 T/CUMM (4-12)
[2017-05-02 05:44] LABS: Calcium 8.1 MG/DL (8.5-10.1); Magnesium 2.2 MG/DL (1.8-2.4); Osmolality,Calculated 282.1 MOS/KG (273-304); Potassium 3.9 MMOL/L (3.5-5.1)
--- NOTE | 2017-05-02 08:42 | Internal Med Progress Note ---
Assessment and Plan (1) Coronary artery disease Status: Acute Assessment and plan: 76-year-old female admitted to acute care * STEMI. Stable * Kevin's disease. She is on home dose of Cortef * Hypertension. Blood pressure is stable * Chronic back pain. She is managed by Dr. Hobson * Fibromyalgia. She has required high doses of Lyrica. * Set her up for home health with physical therapy and OT * Okay to go home from my standpoint. She has an appointment in about 2 weeks Current Visit: Yes Qualifiers: Coronary Disease-Associated Artery/Lesion type: [place] artery [place] vs. transplanted heart: k[place] heart (2) ST elevation myocardial infarction (STEMI) Status: Acute Current Visit: Yes (3) Chronic back pain Status: Chronic Current Visit: Yes (4) Glynn disease Status: Acute Current Visit: No (5) Essential hypertension Status: Acute Current Visit: No (6) Fibromyalgia Status: Acute Current Visit: No Internal Medicine - PN: Subj Interval history: Patient is feeling much better this morning. She has walked with the help of her walker. She is not feeling as weak. She denies any chest pain or shortness of breath. She is complaining of sinus pressure on the left side. Exam (Progress Note) - Constitutional Vitals: Period Temp Pulse Resp BP Sys/Zavala Pulse Ox Last 24 Hr 96.6 F-98.6 F 62-73 16-20 111-150/63-78 95-100 Exam: Examination: GENERAL: NAD. HEENT: PERRLA. EOMI. left maxillary sinus is tender NECK: Neck is supple. CVS: Regular rate and rhythm. S1 and S2 are normal. RESPIRATORY: Lungs are clear. ABDOMEN: Soft and nontender. EXT: No edema. Peripheral pulses are present. EXECUTIVE COORDINATOR: Patient is alert and oriented 3 MSK: No obvious deformity. Results - Labs CBC & BMP: 05/02/17 04:58 05/02/17 04:58 Lab Results: I have reviewed the past 24 hour labs Specialty Discharge - Follow Up or Referrals
--- NOTE | 2017-05-02 09:34 | XRay Report ---
XR sinus Indication: Right maxillary sinus pressure Findings: No air-fluid levels or abnormal soft tissue density are present within the sinuses. No fracture is identified. Sinuses appear normally formed. No other abnormality seen. Impression: No evidence of sinus abnormality demonstrated. PROCEDURE INTERPRETED AT [facility] DEPARTMENT OF RADIOLOGY Final Report Signed by: Dr. Negro Sky
[2017-05-02] MEDS: METOPROLOL TARTRATE 25 MG TABLET PO SCH (09:49)
[2017-05-02] MEDS: oxyCODONE/ACETAMINOPHEN 5-325 MG TABLET PO PRN (09:49)
[2017-05-02] MEDS: DILTIAZEM CD 180 MG CAPSULE PO SCH (09:49)
[2017-05-02] MEDS: PREGABALIN 75 MG CAPSULE PO SCH ×2 (09:49→14:16)
[2017-05-02] MEDS: buPROPion 100 MG TABLET PO SCH (09:49)
[2017-05-02] MEDS: SIMVASTATIN 20 MG TABLET PO SCH (09:49)
[2017-05-02] MEDS: POTASSIUM CHLORIDE 10 MEQ TABLET PO SCH (09:49)
[2017-05-02] MEDS: LOSARTAN 25 MG TABLET PO SCH (09:50)
[2017-05-02] MEDS: HYDROCORTISONE 10 MG TABLET PO SCH (09:50)
[2017-05-02] MEDS: ASPIRIN EC 81 MG TABLET PO SCH (09:50)
[2017-05-02] MEDS: TICAGRELOR 90 MG TABLET PO SCH (09:50)
[2017-05-02] MEDS: CYANOCOBALAMIN 500 MCG TABLET PO SCH (09:50)
[2017-05-02] MEDS: PANTOPRAZOLE 40 MG TABLET PO SCH (09:50)
[2017-05-02] MEDS ORDERED: BISACODYL 10 MG SUPP RECTAL ONE (12:17)
--- NOTE | 2017-05-02 12:24 | Cardiology Progress Note ---
Elaina Cheney April RN, am scribing for, and in the presence of, Mary Ma NP 12:24. Assessment and Plan (1) ST elevation myocardial infarction (STEMI) Status: Acute Assessment and plan: She is now on Brilinta 90 mg p.o. twice daily. She will continue a baby aspirin every day and Zocor 20 mg daily. Current Visit: Yes (2) Chest pain Status: Resolved Assessment and plan: She denies any chest pain this morning. Current Visit: Yes (3) Chronic back pain Status: Chronic Assessment and plan: She continues to complain of back and neck pain. Her home med of Percocet has been restarted, she states this has helped. Current Visit: Yes (4) Coronary artery disease Status: Acute Current Visit: Yes Qualifiers: Coronary Disease-Associated Artery/Lesion type: [place] artery [place] vs. transplanted heart: [place] heart (5) Dyslipidemia Status: Chronic Assessment and plan: She is on Zocor 20 mg daily. Current Visit: No (6) Essential hypertension Status: Acute Assessment and plan: Her pressures have improved. We will continue to monitor and adjust medications accordingly. Current Visit: No (7) Hypokalemia Status: Acute Assessment and plan: Potassium today is 4.7, we will continue to monitor. Current Visit: Yes Cardiology - PN: Subj Interval history: Trailhead Maintenance Worker: Dr. Bates PCP: Dr. Savage SUMMARY: Ms. Lakhani is a 76 year old female who is routinely followed by Dr. Bates with a history of hypertension, CAD, dyslipidemia, GERD, Kevin disease , osteoarthritis, neuropathy, and fibromyalgia. 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 She is also status post a second small non-Q-wave AK due to ruptured plaque in the mid LAD in September 2009, this was also treated medically. She had a normal Lexiscan cardiac stress test done in October 2014 with ejection fraction 58%. Other surgical history includes bilateral cataracts, hysterectomy, rectocele, sinus surgery, bladder suspension, back surgeries, left total knee, and right shoulder. Family history is positive for father with hypertension and AK, mother with rheumatoid arthritis, sister with diabetes, and sons with diabetes and cancer. She presented to the emergency department at [facility] on the morning of April 28 with a sharp steady chest pain that began around 9 AM. She said it was in the center of her chest and did radiate to both shoulders and down both arms. She rated it an 8 or 9 on a scale of 1- 10. It was also associated with shortness of breath. There were no triggers or alleviators related to these symptoms. She denies any nausea vomiting or diaphoresis with these symptoms. She continued to have chest pain and shortness of breath upon arrival to the emergency department. Chest x-ray showed no acute pathology. Initial troponin was 0.051, all other labs unremarkable. EKG indicated ST elevation in the inferolateral leads consistent with an acute inferolateral myocardial infarction. She was taken emergently to the Professor Of Voice with the following findings and recommendations noted: 1: Occlusion of the apical portion of the LAD not amenable to PCI for continued medical therapy 2: No other significant occlusive coronary disease noted of the right coronary or LAD/circumflex 3: Apical hypo-/akinesis ejection fraction in the 55% range 4: Fusiform abdominal aortic aneurysm for continued surveillance 5: Angio-Seal closure right femoral arteriotomy site Discussion and recommendations: This patient presents with an acute inferolateral myocardial infarction related to occlusion of the very distal portion of her LAD. She has severe tortuosity of the vessel with multiple 180 bends. I think the best approach is going to be conservative at this point as the vessel is extremely hard to get a wire to the area occlusion and my plan is to treat this conservatively at this point. I have reviewed with the family and with the patient our plans for continued medical management. April 29, 2017: Ms. Lakhani is seen in the CCU resting in bed. She denies any chest pain, but states she does continue to have episodes of shortness of breath. She complains of neck and back pain from lying in the bed. She has had some oozing from her right groin cath site. No evidence of hematoma at site , good pedal pulses. Her diastolic pressures have continued to be elevated, but are somewhat better this morning, currently 136/88. monitor car operator currently shows sinus rhythm with heart rate in the 60s. O2 sat of 95% on room air. Her potassium was 3.3 this morning, this has been replaced per protocol. Echocardiogram to be done this morning. Patient is stable post myocardial infarction. She is not having currently any problems related to congestive heart failure recurring chest pain. She does have a fusiform abdominal aortic aneurysm which will need to be followed. She sees Dr. upton who is her primary hothouse worker. I think overall she is stable and doing reasonably well. She has had some minimal ooze from her cath site and we are applying a pressure dressing currently. She is now without problems and hopefully for transfer to floor later today. April 30, 2017: Ms. Lakhani is seen resting in bed in no acute distress. She denies any chest pain. Oxygen is in use via nasal cannula and she states that she thinks her breathing has improved. O2 sat currently 95%. monitor car operator currently shows sinus rhythm with heart rates in the 70s. Her blood pressures have been better throughout the night. Labs are unremarkable. May 01, 2017: Ms. Lakhani is seen on the telemetry unit. She is resting in bed without complaints of chest pain. Oxygen is in use via nasal cannula and she denies any shortness of breath. She states she is weak, tired, and generally does not feel well. Her Lyrica was held yesterday due to his confusion. Will consult Dr. Savage to see her regarding her Lyrica dosage. Vital signs been stable, bus monitor currently shows sinus rhythm with heart rates in the 60s. Labs are unremarkable. Hopefully will be discharged tomorrow. She was encouraged to get up and move around the room more today. Exam (Progress Note) - Constitutional Vitals: Period Temp Pulse Resp BP Sys/Zavala Pulse Ox Last 24 Hr 96.2 F-99.3 F 57-87 16-24 112-157/62-92 93-98 Exam: General appearance: no acute distress, over weight - Head Head exam: Absent: abrasion, hematoma, laceration - Eye Eye exam: Absent: periorbital swelling, laceration to eyelids Pupils: Present: RENEA - Respiratory Respiratory exam: Present: clear to auscultation bilaterally. Absent: accessory muscle use, chest wall tenderness - Cardiovascular Cardiovascular exam: Present: regular rate and rhythm. Absent: diastolic murmur , rubs, systolic murmur - GI/Abdominal GI/Abdominal exam: Present: normal bowel sounds, soft. Absent: distended, tenderness - Extremities Exam Extremities exam: Present: other (Right groin cath access site without evidence of hematoma, good pedal pulses). Absent: calf tenderness, edema - Neurological Exam Neurological exam: Present: alert, oriented X3 - Psychiatric Psychiatric exam: Present: normal affect, normal mood - Skin Skin exam: Present: warm, dry Result/EKG - Labs CBC & BMP: 05/01/17 03:37 05/01/17 03:37 Lab Results: I have reviewed the past 24 hour labs Labs: Laboratory Results - last 24 hr 04/30/17 05/01/17 05/01/17 17:58 03:37 03:37 WBC 11.6 RBC 3.93 Hgb 13.2 Hct 41.1 MCV 104.6 H MCH 34 MCHC 32.1 RDW 12.7 Plt Count 244 MPV 10.2 Neut % (Auto) 79.9 H Lymph % (Auto) 11.0 L [place] % (Auto) 7.7 Eos % (Auto) 0.5 Baso % (Auto) 0.2 Neut # (Auto) 9.3 H Lymph # (Auto) 1.3 L [place] # (Auto) 0.9 H Eos # (Auto) 0.1 Baso # (Auto) 0.0 Immature Gran % 0.7 Nucleated RBC % 0.0 Immature Gran # 0.08 Nucleated RBCs # 0.00 Immature Plt Fraction 0.0 Sodium 139 Potassium 4.7 Chloride 105 Carbon Dioxide 26 Anion Gap 12.7 BUN 17 Creatinine 0.70 GFR Calculation 88 BUN/Creatinine Ratio 24.00 H Glucose 96 Calculated Osmolality 278.5 Calcium 8.3 L Magnesium 2.4 Urine Color Yellow Urine Appearance Clear Urine pH 5.0 Ur Specific [place] 1.016 Urine Protein Negative Urine Glucose (UA) Negative Urine Ketones Negative Urine Blood Negative Urine Nitrate Negative Urine Bilirubin Negative Urine Urobilinogen < 2.0 H Urine Leukocytes Negative Urine RBC 2 Urine WBC 2 Ur Squamous Epith Cells Occasional Urine Bacteria Few Urine Mucus Occasional Ur Culture Indicated? Not indicated - EKG EKG results: interpreted by me EKG shows: sinus rhythm Specialty Discharge - Follow Up or Referrals I, Mary Ma NP, personally performed the services described in this documentation, ascribed by Mónica Delaney RN in my presence, and it is both accurate and complete .
--- NOTE | 2017-05-02 12:24 | Cardiology Progress Note ---
Elaina Cheney April RN, am scribing for, and in the presence of, Mary Ma NP 12:24. Assessment and Plan (1) ST elevation myocardial infarction (STEMI) Status: Acute Assessment and plan: She is now on Brilinta 90 mg p.o. twice daily. She will continue a baby aspirin every day and Zocor 20 mg daily. Current Visit: Yes (2) Chest pain Status: Resolved Assessment and plan: She denies any chest pain this morning. Current Visit: Yes (3) Chronic back pain Status: Chronic Assessment and plan: She continues to complain of back and neck pain from lying in bed. Her home med of Percocet has been restarted, she states this has helped. Current Visit: Yes (4) Coronary artery disease Status: Acute Current Visit: Yes Qualifiers: Coronary Disease-Associated Artery/Lesion type: [place] artery [place] vs. transplanted heart: [place] heart (5) Dyslipidemia Status: Chronic Assessment and plan: She is on Zocor 20 mg daily. Current Visit: No (6) Essential hypertension Status: Acute Assessment and plan: We will continue to monitor her blood pressure and adjust medications accordingly. Current Visit: No (7) Hypokalemia Status: Acute Assessment and plan: Potassium today is 4.3, we will continue to monitor. Current Visit: Yes Cardiology - PN: Subj Interval history: [facility] Representative: Dr. Bates PCP: Dr. Savage SUMMARY: Ms. Lakhani is a 76 year old female who is routinely followed by Dr. Bates with a history of hypertension, CAD, dyslipidemia, GERD, [place] disease , osteoarthritis, neuropathy, and fibromyalgia. 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 She is also status post a second small non-Q-wave [place] due to ruptured plaque in the mid LAD in September 2009, this was also treated medically. She had a normal Lexiscan cardiac stress test done in October 2014 with ejection fraction 58%. Other surgical history includes bilateral cataracts, hysterectomy, rectocele, sinus surgery, bladder suspension, back surgeries, left total knee, and right shoulder. Family history is positive for father with hypertension and [place], mother with rheumatoid arthritis, sister with diabetes, and sons with diabetes and cancer. She presented to the emergency department at [facility] on the morning of April 28 with a sharp steady chest pain that began around 9 AM. She said it was in the center of her chest and did radiate to both shoulders and down both arms. She rated it an 8 or 9 on a scale of 1- 10. It was also associated with shortness of breath. There were no triggers or alleviators related to these symptoms. She denies any nausea vomiting or diaphoresis with these symptoms. She continued to have chest pain and shortness of breath upon arrival to the emergency department. Chest x-ray showed no acute pathology. Initial troponin was 0.051, all other labs unremarkable. EKG indicated ST elevation in the inferolateral leads consistent with an acute inferolateral myocardial infarction. She was taken emergently to the [facility] Of [facility] with the following findings and recommendations noted: 1: Occlusion of the apical portion of the LAD not amenable to PCI for continued medical therapy 2: No other significant occlusive coronary disease noted of the right coronary or LAD/circumflex 3: Apical hypo-/akinesis ejection fraction in the 55% range 4: Fusiform abdominal aortic aneurysm for continued surveillance 5: Angio-Seal closure right femoral arteriotomy site Discussion and recommendations: This patient presents with an acute inferolateral myocardial infarction related to occlusion of the very distal portion of her LAD. She has severe tortuosity of the vessel with multiple 180 bends. I think the best approach is going to be conservative at this point as the vessel is extremely hard to get a wire to the area occlusion and my plan is to treat this conservatively at this point. I have reviewed with the family and with the patient our plans for continued medical management. April 29, 2017: Ms. Lakhani is seen in the CCU resting in bed. She denies any chest pain, but states she does continue to have episodes of shortness of breath. She complains of neck and back pain from lying in the bed. She has had some oozing from her right groin cath site. No evidence of hematoma at site , good pedal pulses. Her diastolic pressures have continued to be elevated, but are somewhat better this morning, currently 136/88. 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 O2 sat of 95% on room air. Her potassium was 3.3 this morning, this has been replaced per protocol. Echocardiogram to be done this morning. Patient is stable post myocardial infarction. She is not having currently any problems related to congestive heart failure recurring chest pain. She does have a fusiform abdominal aortic aneurysm which will need to be followed. She sees Dr. upton who is her primary licensed clinical social worker. I think overall she is stable and doing reasonably well. She has had some minimal ooze from her cath site and we are applying a pressure dressing currently. She is now without problems and hopefully for transfer to floor later today. April 30, 2017: Ms. Lakhani is seen resting in bed in no acute distress. She denies any chest pain. Oxygen is in use via nasal cannula and she states that she thinks her breathing has improved. O2 sat currently 95%. 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 Her blood pressures have been better throughout the night. Labs are unremarkable. Exam (Progress Note) - Constitutional Vitals: Period Temp Pulse Resp BP Sys/Zavala Pulse Ox Last 24 Hr 97.0 F-98.4 F 58-87 15-25 101-157/45-92 87-97 Exam: General appearance: no acute distress, over weight - Head Head exam: Absent: abrasion, hematoma, laceration - Eye Eye exam: Absent: periorbital swelling, laceration to eyelids Pupils: Present: RENEA - Respiratory Respiratory exam: Present: clear to auscultation bilaterally. Absent: accessory muscle use, chest wall tenderness - Cardiovascular Cardiovascular exam: Present: regular rate and rhythm. Absent: diastolic murmur , rubs, systolic murmur - GI/Abdominal GI/Abdominal exam: Present: normal bowel sounds, soft. Absent: distended, tenderness - Extremities Exam Extremities exam: Present: other (Right groin cath access site without evidence of hematoma, dressing dry and intact good pedal pulses). Absent: calf tenderness, edema - Neurological Exam Neurological exam: Present: alert, oriented X3 - Psychiatric Psychiatric exam: Present: normal affect, normal mood - Skin Skin exam: Present: warm, dry Result/EKG - Labs CBC & BMP: 05/01/17 03:37 05/01/17 03:37 Lab Results: I have reviewed the past 24 hour labs Labs: Laboratory Results - last 24 hr 04/30/17 04/30/17 04:02 04:02 WBC 9.5 RBC 3.60 L Hgb 12.0 Hct 37.4 MCV 103.9 H MCH 33 MCHC 32.1 RDW 12.8 Plt Count 229 MPV 10.1 Neut % (Auto) 76.2 H Lymph % (Auto) 14.2 L [place] % (Auto) 8.2 Eos % (Auto) 0.4 Baso % (Auto) 0.3 Neut # (Auto) 7.2 Lymph # (Auto) 1.4 [place] # (Auto) 0.8 Eos # (Auto) 0.0 Baso # (Auto) 0.0 Immature Gran % 0.7 Nucleated RBC % 0.0 Immature Gran # 0.07 Nucleated RBCs # 0.00 Immature Plt Fraction 0.0 Sodium 143 Potassium 4.3 Chloride 110 H Carbon Dioxide 25 Anion Gap 12.3 BUN 15 Creatinine 0.70 GFR Calculation 88 BUN/Creatinine Ratio 21.00 H Glucose 97 Calculated Osmolality 285.0 Calcium 8.4 L Magnesium 2.2 - EKG EKG results: interpreted by me EKG shows: sinus rhythm Specialty Discharge - Follow Up or Referrals Francesca Cheney Bonnie E, NP, personally performed the services described in this documentation, ascribed by Mónica Delaney RN in my presence, and it is both accurate and complete .
--- NOTE | 2017-05-02 12:36 | Cardiology Progress Note ---
Assessment and Plan - Time spent with patient Time spent with patient: Greater than 30 minutes (1) ST elevation myocardial infarction (STEMI) Status: Resolved Assessment and plan: SEE PLAN OF CARE LISTED BELOW Current Visit: Yes Qualifiers: Involved coronary artery: LAD coronary artery Qualified Code(s): I21.02 - ST elevation (STEMI) myocardial infarction involving left anterior descending coronary artery (2) Chest pain Status: Resolved Assessment and plan: SEE PLAN OF CARE LISTED BELOW Current Visit: Yes (3) Chronic back pain Status: Chronic Assessment and plan: SEE PLAN OF CARE LISTED BELOW Current Visit: Yes (4) Coronary artery disease Status: Chronic Assessment and plan: SEE PLAN OF CARE LISTED BELOW Current Visit: Yes Qualifiers: Coronary Disease-Associated Artery/Lesion type: [place] artery [place] vs. transplanted heart: [place] heart (5) Dyslipidemia Status: Chronic Assessment and plan: SEE PLAN OF CARE LISTED BELOW Current Visit: No (6) Essential hypertension Status: Chronic Assessment and plan: SEE PLAN OF CARE LISTED BELOW Current Visit: No (7) Hypokalemia Status: Resolved Assessment and plan: SEE PLAN OF CARE LISTED BELOW Current Visit: Yes Cardiology - PN: Subj Interval history: MOLECULAR PATHOLOGIST: DR. BATES PCP: DR. SAVAGE SUMMARY: Ms. Lakhani is a 76 year old female who is routinely followed by Dr. Bates with a history of hypertension, CAD, dyslipidemia, GERD, [place] disease , osteoarthritis, neuropathy, and fibromyalgia. 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 She is also status post a second small non-Q-wave [place] due to ruptured plaque in the mid LAD in September 2009, this was also treated medically. She had a normal Lexiscan cardiac stress test done in October 2014 with ejection fraction 58%. Other surgical history includes bilateral cataracts, hysterectomy, rectocele, sinus surgery, bladder suspension, back surgeries, left total knee, and right shoulder. Family history is positive for father with hypertension and [place], mother with rheumatoid arthritis, sister with diabetes, and sons with diabetes and cancer. She presented to the emergency department at [facility] on the morning of April 28 with a sharp steady chest pain that began around 9 AM. She said it was in the center of her chest and did radiate to both shoulders and down both arms. She rated it an 8 or 9 on a scale of 1- 10. It was also associated with shortness of breath. There were no triggers or alleviators related to these symptoms. She denies any nausea vomiting or diaphoresis with these symptoms. She continued to have chest pain and shortness of breath upon arrival to the emergency department. Chest x-ray showed no acute pathology. Initial troponin was 0.051, all other labs unremarkable. EKG indicated ST elevation in the inferolateral leads consistent with an acute inferolateral myocardial infarction. She was taken emergently to the [employer] [facility] with the following findings and recommendations noted: 1: Occlusion of the apical portion of the LAD not amenable to PCI for continued medical therapy 2: No other significant occlusive coronary disease noted of the right coronary or LAD/circumflex 3: Apical hypo-/akinesis ejection fraction in the 55% range 4: Fusiform abdominal aortic aneurysm for continued surveillance 5: Angio-Seal closure right femoral arteriotomy site Discussion and recommendations: This patient presents with an acute inferolateral myocardial infarction related to occlusion of the very distal portion of her LAD. She has severe tortuosity of the vessel with multiple 180 bends. I think the best approach is going to be conservative at this point as the vessel is extremely hard to get a wire to the area occlusion and my plan is to treat this conservatively at this point. I have reviewed with the family and with the patient our plans for continued medical management. April 29, 2017: Ms. Lakhani is seen in the CCU resting in bed. She denies any chest pain, but states she does continue to have episodes of shortness of breath. She complains of neck and back pain from lying in the bed. She has had some oozing from her right groin cath site. No evidence of hematoma at site , good pedal pulses. Her diastolic pressures have continued to be elevated, but are somewhat better this morning, currently 136/88. 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 O2 sat of 95% on room air. Her potassium was 3.3 this morning, this has been replaced per protocol. Echocardiogram to be done this morning. Patient is stable post myocardial infarction. She is not having currently any problems related to congestive heart failure recurring chest pain. She does have a fusiform abdominal aortic aneurysm which will need to be followed. She sees Dr. 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 I think overall she is stable and doing reasonably well. She has had some minimal ooze from her cath site and we are applying a pressure dressing currently. She is now without problems and hopefully for transfer to floor later today. April 30, 2017: Ms. Lakhani is seen resting in bed in no acute distress. She denies any chest pain. Oxygen is in use via nasal cannula and she states that she thinks her breathing has improved. O2 sat currently 95%. 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 Her blood pressures have been better throughout the night. Labs are unremarkable. May 01, 2017: Ms. Lakhani is seen on the telemetry unit. She is resting in bed without complaints of chest pain. Oxygen is in use via nasal cannula and she denies any shortness of breath. She states she is weak, tired, and generally does not feel well. Her Lyrica was held yesterday due to his confusion. Will consult Dr. Savage to see her regarding her Lyrica dosage. Vital signs been stable, medical center director currently shows sinus rhythm with heart rates in the 60s. Labs are unremarkable. Hopefully will be discharged tomorrow. She was encouraged to get up and move around the room more today. MAY 02, 2017: Overnight, patient continues to improve. She is still weak however, this has improved overnight. She would like to be discharged home however her abdomen is somewhat tight. She has not had a bowel movement in 7 days. Also, she may benefit from home oxygen. We will have her evaluated for such. Denies chest pain, heaviness or tightness. Intermittent shortness of breath and using oxygen intermittently. Labs are stable as are vital signs. We will reassess this afternoon for possible discharge. Our plan today will include the following: Dulcolax suppository now, assess for home oxygen needs. If she can have a bowel movement today, she may be eligible for discharge. She is on a good cocktail of medications for her recent STEMI to include: Aspirin, Brilinta, Metoprolol, Losartan, Crestor. Will further discuss with Dr. [place] and await additional recommendations. ASSESSMENT/PLAN: 1. ANTERIOR STEMI - medical management ensues. Continues to improve. EF preserve at 55%. 2. CAD - continue current plan of care 3. HYPERTENSION - adequately controlled on beta blockade, ARB 4. DYSLIPIDEMIA - LDL 87. Due to Simvastatin interactions with numerous medications including calcium channel blockers, will switch to Crestor 5. CONSTIPATION - Dulcolax suppository now. Not in pain and has normoactive bowel sounds, therefore will not order a KUB. Will reassess this afternoon. 6. CHRONIC PAIN - appreciate Dr. Savage's assistance 7. DEBILITATED STATE - reinforced importance of continued use of walker, particularly while taking blood thinners. Verbalized understanding Exam (Progress Note) - Constitutional Vitals: Period Temp Pulse Resp BP Sys/Zavala Pulse Ox Last 24 Hr 96.6 F-98.6 F 63-76 16-20 111-144/63-98 95-100 Exam: General: [Appears well with no apparent distress.] [Pleasant and cooperative. ] [Appears comfortable.] HEENT: [PERRL, normocephalic, atraumatic. Mucous membranes moist. No jaundice noted. Conjunctiva moist and clear, sclerae anicteric] Neck: No obvious JVD/HJR, no thyromegaly or lymphadenopathy noted. No carotid bruit appreciated Cardiac: [Regular rate and rhythm.] [No murmur rub or gallop.] Lungs: [Clear to auscultation without accessory muscle use to assist the respiratory pattern.] Oxygen in use via nasal cannula Abdomen: Soft, bowel sounds normoactive. Nontender and nondistended. No abdominal bruit or thrill noted. No masses noted. Musculoskeletal: No fluid collection. Decreased range of motion is noted. Extremities: Right groin soft, free of hematoma or bruit. Mild ecchymosis noted. No clubbing, cyanosis noted. [ No edema noted.] Upper extremity pulses 2+. Lower extremity pulses 2+. Capillary refill less than 3 seconds. Skin: No unusual lesions or rashes. No skin breakdown appreciated. Neuro: Awake, alert and oriented 3. Moves all extremities well without hemiparesis or paralysis. No essential tremor is appreciated. Result/EKG - Labs CBC & BMP: 05/02/17 04:58 05/02/17 04:58 Lab Results: I have reviewed the past 24 hour labs Labs: Laboratory Results - last 24 hr 05/02/17 05/02/17 04:58 04:58 WBC 10.9 RBC 3.69 L Hgb 12.4 Hct 37.7 MCV 102.2 H MCH 34 MCHC 32.9 RDW 12.4 Plt Count 230 MPV 10.0 Neut % (Auto) 78.9 H Lymph % (Auto) 12.4 L [place] % (Auto) 7.0 Eos % (Auto) 0.8 Baso % (Auto) 0.2 Neut # (Auto) 8.6 H Lymph # (Auto) 1.4 [place] # (Auto) 0.8 Eos # (Auto) 0.1 Baso # (Auto) 0.0 Immature Gran % 0.7 Nucleated RBC % 0.0 Immature Gran # 0.08 Nucleated RBCs # 0.00 Immature Plt Fraction 0.0 Sodium 142 Potassium 3.9 Chloride 107 Carbon Dioxide 28 Anion Gap 10.9 BUN 12 Creatinine 0.60 GFR Calculation 90 BUN/Creatinine Ratio 20.00 Glucose 90 Calculated Osmolality 282.1 Calcium 8.1 L Magnesium 2.2 - Diagnostic Findings Procedure: Chest x-ray: report reviewed by me - EKG EKG results: interpreted by oh EKG shows: sinus rhythm Specialty Discharge - Follow Up or Referrals
[2017-05-02 12:43] VITALS: BP 127/76
--- NOTE | 2017-05-02 14:55 | Discharge Summary ---
Hospital Course - Hospital Course Hospital Course: Interval history: [employer] CHIEF: DR. BATES PCP: DR. SAVAGE SUMMARY: Ms. Lakhani is a 76 year old female who is routinely followed by Dr. Bates with a history of hypertension, CAD, dyslipidemia, GERD, [place] disease , osteoarthritis, neuropathy, and fibromyalgia. 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 She is also status post a second small non-Q-wave PA due to ruptured plaque in the mid LAD in September 2009, this was also treated medically. She had a normal Lexiscan cardiac stress test done in October 2014 with ejection fraction 58%. Other surgical history includes bilateral cataracts, hysterectomy, rectocele, sinus surgery, bladder suspension, back surgeries, left total knee, and right shoulder. Family history is positive for father with hypertension and PA, mother with rheumatoid arthritis, sister with diabetes, and sons with diabetes and cancer. She presented to the emergency department at [facility] on the morning of April 28 with a sharp steady chest pain that began around 9 AM. She said it was in the center of her chest and did radiate to both shoulders and down both arms. She rated it an 8 or 9 on a scale of 1- 10. It was also associated with shortness of breath. There were no triggers or alleviators related to these symptoms. She denies any nausea vomiting or diaphoresis with these symptoms. She continued to have chest pain and shortness of breath upon arrival to the emergency department. Chest x-ray showed no acute pathology. Initial troponin was 0.051, all other labs unremarkable. EKG indicated ST elevation in the inferolateral leads consistent with an acute inferolateral myocardial infarction. She was taken emergently to the [facility] with the following findings and recommendations noted: 1: Occlusion of the apical portion of the LAD not amenable to PCI for continued medical therapy 2: No other significant occlusive coronary disease noted of the right coronary or LAD/circumflex 3: Apical hypo-/akinesis ejection fraction in the 55% range 4: Fusiform abdominal aortic aneurysm for continued surveillance 5: Angio-Seal closure right femoral arteriotomy site Discussion and recommendations: This patient presents with an acute inferolateral myocardial infarction related to occlusion of the very distal portion of her LAD. She has severe tortuosity of the vessel with multiple 180 bends. I think the best approach is going to be conservative at this point as the vessel is extremely hard to get a wire to the area occlusion and my plan is to treat this conservatively at this point. I have reviewed with the family and with the patient our plans for continued medical management. April 29, 2017: Ms. Lakhani is seen in the CCU resting in bed. She denies any chest pain, but states she does continue to have episodes of shortness of breath. She complains of neck and back pain from lying in the bed. She has had some oozing from her right groin cath site. No evidence of hematoma at site , good pedal pulses. Her diastolic pressures have continued to be elevated, but are somewhat better this morning, currently 136/88. lunchroom monitor currently shows sinus rhythm with heart rate in the 60s. O2 sat of 95% on room air. Her potassium was 3.3 this morning, this has been replaced per protocol. Echocardiogram to be done this morning. Patient is stable post myocardial infarction. She is not having currently any problems related to congestive heart failure recurring chest pain. She does have a fusiform abdominal aortic aneurysm which will need to be followed. She sees Dr. upton who is her primary powder monkey. I think overall she is stable and doing reasonably well. She has had some minimal ooze from her cath site and we are applying a pressure dressing currently. She is now without problems and hopefully for transfer to floor later today. April 30, 2017: Ms. Lakhani is seen resting in bed in no acute distress. She denies any chest pain. Oxygen is in use via nasal cannula and she states that she thinks her breathing has improved. O2 sat currently 95%. lunchroom monitor currently shows sinus rhythm with heart rates in the 70s. Her blood pressures have been better throughout the night. Labs are unremarkable. May 01, 2017: Ms. Lakhani is seen on the telemetry unit. She is resting in bed without complaints of chest pain. Oxygen is in use via nasal cannula and she denies any shortness of breath. She states she is weak, tired, and generally does not feel well. Her Lyrica was held yesterday due to his confusion. Will consult Dr. Savage to see her regarding her Lyrica dosage. Vital signs been stable, pvc monitor currently shows sinus rhythm with heart rates in the 60s. Labs are unremarkable. Hopefully will be discharged tomorrow. She was encouraged to get up and move around the room more today. MAY 02, 2017: Overnight, patient continues to improve. She is still weak however, this has improved overnight. She would like to be discharged home however her abdomen is somewhat tight. She has not had a bowel movement in 7 days. Also, she may benefit from home oxygen. We will have her evaluated for such. Denies chest pain, heaviness or tightness. Intermittent shortness of breath and using oxygen intermittently. Labs are stable as are vital signs. We will reassess this afternoon for possible discharge. Our plan today will include the following: Dulcolax suppository now, assess for home oxygen needs. If she can have a bowel movement today, she may be eligible for discharge. She is on a good cocktail of medications for her recent STEMI to include: Aspirin, Brilinta, Metoprolol, Losartan, Crestor. Will further discuss with Dr. Orona and await additional recommendations. ADDENDUM: Patient had moderate bowel movement after being given suppository. She did not qualify for home oxygen. She would like to be discharged home. I believe this is reasonable. We will discharge her today, give her follow-up appointment with Dr. Bates in approximately 2-3 weeks. BMP, magnesium, CBC and EKG at that visit. Cardiac discharge medications include the following: Aspirin 81 mg orally daily Diltiazem CD 180 mg orally daily Losartan 25 mg orally daily Metoprolol tartrate 25 mg orally twice daily Imdur 30mg orally daily Crestor 20 mill grams orally each evening Brilinta 90 mg orally twice daily. She is being given a prescription card. She will resume her other preadmission, noncardiac medications. - Time spent with patient Time with patient DS: Greater than 30 minutes Diagnosis - Discharge Diagnosis (1) ST elevation myocardial infarction (STEMI) Status: Resolved (2) Chest pain Status: Resolved (3) Chronic back pain Status: Chronic (4) Coronary artery disease Status: Chronic (5) Dyslipidemia Status: Chronic (6) Essential hypertension Status: Chronic (7) Hypokalemia Status: Resolved Specialty Discharge - Follow Up or Referrals Follow up with: Kenji Bates MD [Physician] - (2-3 WEEKS. BMP, Mg, CBC, EKG) Discharge Plan - Discharge Data Disposition: Disch To Home/Self Care Condition at Discharge: Stable Discharge Diet: heart healthy Activity: other (Post cath expectations) Hygiene: other (Post cath expectations) Weight Bearing at Discharge: other (Post cath expectations) Driving: other (Post cath expectations) Contact your physician if you experience:: fever over 101, Difficulty voiding, Redness or swelling, Nausea/Vomiting, Shortness of breath, Bleeding, pain uncontrolled by pain medications - Discharge Medications New Losartan [Cozaar] 25 mg PO DAILY #30 tablet Rosuvastatin [Crestor] 20 mg PO BEDTIME #30 tablet Metoprolol Tartrate Tab [Lopressor Tab] 25 mg PO BID #60 tablet Ticagrelor [Brilinta] 90 mg PO BID #60 tablet Continue Cyanocobalamin Tab [Vitamin B12 Tab] 2,500 meq PO DAILY Aspirin [Ecotrin] 81 mg PO DAILY Potassium Chloride Cap/Tab [K Dur] 10 meq PO DAILY Isosorbide Mononitrate [Imdur] 30 mg PO DAILY Pregabalin [Lyrica] 150 mg PO TID buPROPion [Wellbutrin] 100 mg PO BID Diltiazem Cd Cap [Cardizem CD] 180 mg PO DAILY Oxycodone HCl/Acetaminophen [Percocet 10-325 mg Tablet] 10 - 325 mg PO Q6H Hydrocortisone Tab [Cortef Tab] 15 mg PO QPM #0 tablet Hydrocortisone Tab [Cortef Tab] 25 mg PO QAM #0 tablet Pantoprazole Tab [Protonix Tab] 40 mg PO DAILY Discontinued Simvastatin [Zocor] 20 mg PO DAILY Carvedilol [Coreg] 12.5 mg PO BID Clopidogrel [Plavix] 75 mg PO DAILY tablet - Follow Up or Referral - Forms/Instructions Instructions: Myocardial Infarction (GEN), Coronary Artery Disease (GEN), Left Heart Catheterization (DC), Heart Healthy Diet (GEN) Additional Discharge Instructions: Please give Brilinta Rx prior to discharge today Exam - Constitutional Vitals: Period Temp Pulse Resp BP Sys/Zavala Pulse Ox Last 24 Hr 96.6 F-98.6 F 63-76 16-20 111-144/63-98 95-100 Exam: General: [Appears well with no apparent distress.] [Pleasant and cooperative. ] [Appears comfortable.] HEENT: [PERRL, normocephalic, atraumatic. Mucous membranes moist. No jaundice noted. Conjunctiva moist and clear, sclerae anicteric] Neck: No obvious JVD/HJR, no thyromegaly or lymphadenopathy noted. No carotid bruit appreciated Cardiac: [Regular rate and rhythm.] [No murmur rub or gallop.] Lungs: [Clear to auscultation without accessory muscle use to assist the respiratory pattern.] Oxygen in use via nasal cannula Abdomen: Soft, bowel sounds normoactive. Nontender and nondistended. No abdominal bruit or thrill noted. No masses noted. Musculoskeletal: No fluid collection. Decreased range of motion is noted. Extremities: Right groin soft, free of hematoma or bruit. Mild ecchymosis noted. No clubbing, cyanosis noted. [ No edema noted.] Upper extremity pulses 2+. Lower extremity pulses 2+. Capillary refill less than 3 seconds. Skin: No unusual lesions or rashes. No skin breakdown appreciated. Neuro: Awake, alert and oriented 3. Moves all extremities well without hemiparesis or paralysis. No essential tremor is appreciated. Discharge Results Labs on day of discharge: Labs from last 24 hours 05/02/17 05/02/17 04:58 04:58 WBC 10.9 RBC 3.69 L Hgb 12.4 Hct 37.7 MCV 102.2 H MCH 34 MCHC 32.9 RDW 12.4 Plt Count 230 MPV 10.0 Neut % (Auto) 78.9 H Lymph % (Auto) 12.4 L [place] % (Auto) 7.0 Eos % (Auto) 0.8 Baso % (Auto) 0.2 Neut # (Auto) 8.6 H Lymph # (Auto) 1.4 [place] # (Auto) 0.8 Eos # (Auto) 0.1 Baso # (Auto) 0.0 Immature Gran % 0.7 Nucleated RBC % 0.0 Immature Gran # 0.08 Nucleated RBCs # 0.00 Immature Plt Fraction 0.0 Sodium 142 Potassium 3.9 Chloride 107 Carbon Dioxide 28 Anion Gap 10.9 BUN 12 Creatinine 0.60 GFR Calculation 90 BUN/Creatinine Ratio 20.00 Glucose 90 Calculated Osmolality 282.1 Calcium 8.1 L Magnesium 2.2 DS: Provider Date of admission: 04/29/17 10:55 Primary care physician: . No PCP Attending physician on admission: Carlitos Orona MD Consults: 04/28/17 12:46 Consult to Cardiac Rehabilitation [CONS] Routine Reason for Cardiac Rehabilitation: Risk Factor Modification 05/01/17 08:06 Consult to Physician [CONS] Routine Comment: regarding lyrica dosing Consulting Provider: Wenceslao Savage Person Notified: Yesika Date Notified: 05/01/17 Time Notified: 10:00 Consult Notification Comment: Notified office that Hussein has already been by. 05/01/17 08:09 Consult to Occupational Therapy [CONS] Routine Reason for Occupational Therapy: Evaluate and Treat Consult to Physical Therapy [CONS] Routine Reason for Physical Therapy: Evaluate and Treat 05/02/17 08:42 Consult to Case Mgmt/Social Srvs [CONS] Routine Reason for Case Mgmt/Social Srvs: Discharge Planning Home Health Consult Comment: Set up physical therapy with home health 05/02/17 12:17 Consult to Case Mgmt/Social Srvs [CONS] Routine Reason for Case Mgmt/Social Srvs: Other Consult Comment: Please have her assessed for home O2 needs today. May be DC today Discharging clinician: Mary Ma NP Expected date of discharge: 05/02/17
[2017-05-02] MEDS ORDERED: ROSUVASTATIN 20 MG TABLET PO SCH (21:00)
== END 2017-05-02 15:50 | disposition home or self-care (01) | DRG 281 ==
LOC: EDBD → EDUNIT# → N.ED 10:59 → N.CC 11:19 → N.ED 11:19 → N.CL 11:20 → N.CC 12:17 → N.TELES 04-30 17:08
PROVIDERS: ADMIT Internal Medicine Interventional Cardiology; ATTEND Internal Medicine Interventional Cardiology
PROC: CLCCHCL (ICD-10-PCS; 2017-04-28 12:15)

== ENCOUNTER 2018-01-08 08:40 | Inpatient (IN) ==
[2018-01-08] MEDS ORDERED: ENOXAPARIN 100 MG/ML SYRINGE SUBCUT STA (09:12)
[2018-01-08] MEDS ORDERED: NITROGLYCERIN 2% OINT 1 INCH/GM PACK TOP STA (09:12)
[2018-01-08] MEDS ORDERED: METOPROLOL TARTRATE 5 MG/5 ML VIAL IV STA (09:12)
[2018-01-08] MEDS ORDERED: ALUM/MAG/SIMETH/LIDO VISC 1:1 30 ML BOTTLE PO STA (09:12)
[2018-01-08] MEDS ORDERED: ASPIRIN 325 MG TABLET PO STA (09:12)
[2018-01-08 09:35] LABS: Basophils % 0.2 % (0.0-0.8); Eosinophils % 0.2 % (0.00-10.9); Hemoglobin 11.3 GM/DL (12.0-16.0); Immature Granulocytes % 0.6 %; Immature Granulocytes Absolute 0.07 #; Lymphocytes # 2.5 10*3/uL (1.4-4.0); Lymphocytes % 21.9 % (21.3-54.2); Mean Corpuscular HGB Conc 32.3 GM/DL (32-36); Mean Corpuscular Hemoglobin 34 PG (27-34); Mean Corpuscular Volume 103.9 FL (87-102); Mean Platelet Volume 9.8 FL (9.6-12.0); Monocytes # 0.7 10*3/uL (0.11-0.8); Neutrophils # 8.1 10*3/uL (1.4-7.4); Neutrophils % 71.1 % (38.7-73.9); Platelet Count 249 T/CUMM (130-400); Red Blood Count 3.37 MC/CUMM (3.8-5.5); Red Cell Distribution Width 13.4 % (9.3-17.3); White Blood Count 11.4 T/CUMM (4-12)
[2018-01-08] MEDS ORDERED: ASPIRIN 325 MG TABLET ONE (09:35)
[2018-01-08] MEDS ORDERED: NITROGLYCERIN 2% OINT 1 INCH/GM PACK TOP ONE (09:35)
[2018-01-08] MEDS ORDERED: ENOXAPARIN 100 MG/ML SYRINGE SUBCUT ONE (09:35)
[2018-01-08] MEDS ORDERED: ALUM/MAG/SIMETH/LIDO VISC 1:1 30 ML BOTTLE PO ONE (09:36)
[2018-01-08 09:44] LABS: PT Patient Result 10.2 SECS; Partial Thromboplastin Time 23.7 SECS (0-40)
[2018-01-08 10:05] LABS: Albumin 3.3 G/DL (3.4-5.0); Bilirubin,Total 0.8 MG/DL (0.2-1.0); Calcium 8.2 MG/DL (8.5-10.1); Osmolality,Calculated 287.7 MOS/KG (273-304); Potassium 3.5 MMOL/L (3.5-5.1); Total Protein 5.9 G/DL (6.4-8.3)
[2018-01-08 10:20] LABS: Apearance,Urine CLEAR (Clear); Bacteria,Urine Occasional /HPF (Few); Bilirubin,Urine Negative (Negative); Blood, Urine Negative (Negative); Glucose,Urine (UA) Negative (Negative); Ketones,Urine Negative (Negative); Nitrite,Urine Negative (Negative); Protein,Urine Negative; RBC,Urine <1 /HPF (0-4); Urine Color Straw (Yellow); Urine Specific Gravity 1.005 (1.001-1.035); Urine Urobilinogen < 2.0 EU/DL (0.2-1.0)
[2018-01-08 10:28] LABS: Barbiturates Screen,Urine Negative (Negative); Benzodiazepines Screen,Urine Negative (Negative); Cannabinoid Screen,Urine Negative (Negative); Opiate Screen,Urine Negative (Negative); Phencyclidine Screen,Urine Negative (Negative)
[2018-01-08] MEDS ORDERED: ONDANSETRON 4 MG/2 ML VIAL IV PRN (12:24)
[2018-01-08] MEDS ORDERED: oxyCODONE/ACETAMINOPHEN 5-325 MG TABLET PO SCH (13:15)
[2018-01-08] MEDS: oxyCODONE/ACETAMINOPHEN 5-325 MG TABLET PO SCH ×2 (13:53→20:51)
[2018-01-08] MEDS: SODIUM CHLORIDE 0.9% 1,000 ML IV SCH ×2 (13:53→20:55)
[2018-01-08] MEDS: PREGABALIN 75 MG CAPSULE PO SCH ×2 (14:02→20:52)
[2018-01-08] MEDS ORDERED: ISOSORBIDE MONONITRATE 30 MG TABLET PO SCH ×2 (19:00→21:00)
[2018-01-08] MEDS: ROSUVASTATIN 20 MG TABLET PO SCH (20:51)
[2018-01-08] MEDS: DOCUSATE SODIUM 100 MG CAPSULE PO SCH (20:51)
[2018-01-08] MEDS: ENOXAPARIN 40 MG/0.4 ML SYRINGE SUBCUT SCH (20:52)
[2018-01-08] MEDS: buPROPion 100 MG TABLET PO SCH (20:56)
[2018-01-08] MEDS: DOCUSATE/SENNA 50-8.6 MG TABLET PO SCH (20:56)
[2018-01-08] MEDS: rOPINIRole 0.25 MG TABLET PO SCH (20:56)
[2018-01-08] MEDS ORDERED: NON-FORMULARY MEDICATION (Lansoprazole [Prevacid] 30 MG) PO SCH (21:00)
[2018-01-08] MEDS ORDERED: METOPROLOL TARTRATE 50 MG TABLET PO SCH ×2 (21:00)
[2018-01-09 03:54] LABS: Basophils % 0.2 % (0.0-0.8); Eosinophils % 0.4 % (0.00-10.9); Immature Granulocytes % 0.7 %; Immature Granulocytes Absolute 0.07 #; Lymphocytes # 2.9 10*3/uL (1.4-4.0); Lymphocytes % 28.6 % (21.3-54.2); Mean Corpuscular HGB Conc 31.4 GM/DL (32-36); Mean Corpuscular Hemoglobin 33 PG (27-34); Mean Corpuscular Volume 103.6 FL (87-102); Mean Platelet Volume 9.8 FL (9.6-12.0); Monocytes # 0.6 10*3/uL (0.11-0.8); Monocytes % 6.2 % (1.7-12.7); Neutrophils # 6.5 10*3/uL (1.4-7.4); Neutrophils % 63.9 % (38.7-73.9); Platelet Count 236 T/CUMM (130-400); Red Blood Count 3.38 MC/CUMM (3.8-5.5); Red Cell Distribution Width 13.2 % (9.3-17.3); White Blood Count 10.1 T/CUMM (4-12)
[2018-01-09] MEDS: oxyCODONE/ACETAMINOPHEN 5-325 MG TABLET PO SCH ×4 (04:15→21:25)
[2018-01-09 04:25] LABS: Osmolality,Calculated 284.7 MOS/KG (273-304); Potassium 3.3 MMOL/L (3.5-5.1)
[2018-01-09] MEDS: SODIUM CHLORIDE 0.9% 1,000 ML IV SCH ×3 (06:52→21:26)
[2018-01-09] MEDS ORDERED: ALBUTEROL/IPRATROPIUM 3 ML NEB RESP TX SCH ×2 (09:00→11:00)
[2018-01-09] MEDS ORDERED: DILTIAZEM CD 180 MG CAPSULE PO SCH (09:00)
[2018-01-09] MEDS: HYDROCORTISONE 10 MG TABLET PO SCH (09:53)
[2018-01-09] MEDS: PANTOPRAZOLE 40 MG TABLET PO SCH (09:53)
[2018-01-09] MEDS: CLOPIDOGREL 75 MG TABLET PO SCH (09:53)
[2018-01-09] MEDS: DOCUSATE SODIUM 100 MG CAPSULE PO SCH ×2 (09:53→21:25)
[2018-01-09] MEDS: POTASSIUM CHLORIDE 10 MEQ TABLET PO SCH (09:53)
[2018-01-09] MEDS: ASPIRIN EC 81 MG TABLET PO SCH (09:53)
[2018-01-09] MEDS: buPROPion 100 MG TABLET PO SCH ×2 (09:54→21:24)
[2018-01-09] MEDS: PREGABALIN 75 MG CAPSULE PO SCH ×3 (09:54→21:25)
[2018-01-09] MEDS: NEBIVOLOL 5 MG TABLET PO SCH (09:54)
[2018-01-09] MEDS ORDERED: FUROSEMIDE 40 MG/4 ML VIAL IV ONE (10:21)
[2018-01-09] MEDS ORDERED: ALBUTEROL/IPRATROPIUM 3 ML NEB RESP TX PRN (10:24)
[2018-01-09] MEDS: FLUTICASONE 50 MCG NASAL SPRAY 16 GM BOTTLE BOTH NARES SCH ×2 (10:37→21:26)
[2018-01-09] MEDS ORDERED: POTASSIUM CHLORIDE 20 MEQ TABLET PO ONE (11:51)
[2018-01-09] MEDS ORDERED: DILTIAZEM 50 MG/10 ML VIAL IV ONE (14:06)
[2018-01-09] MEDS ORDERED: DILTIAZEM INJ 100 MG in SODIUM CHLORIDE 0.9% 100 ML IV SCH (14:30)
[2018-01-09] MEDS ORDERED: LEVALBUTEROL 1.25 MG/3 ML NEB RESP TX PRN (14:47)
[2018-01-09] MEDS: LEVALBUTEROL 1.25 MG/3 ML NEB RESP TX SCH ×2 (15:21→20:30)
[2018-01-09] MEDS: ENOXAPARIN 40 MG/0.4 ML SYRINGE SUBCUT SCH (21:24)
[2018-01-09] MEDS: rOPINIRole 0.25 MG TABLET PO SCH (21:24)
[2018-01-09] MEDS: DILTIAZEM CD 180 MG CAPSULE PO SCH (21:25)
[2018-01-09] MEDS: ROSUVASTATIN 20 MG TABLET PO SCH (21:26)
[2018-01-09] MEDS: DOCUSATE/SENNA 50-8.6 MG TABLET PO SCH (21:26)
[2018-01-09] MEDS: ISOSORBIDE MONONITRATE 30 MG TABLET PO SCH (21:26)
[2018-01-10] MEDS: LEVALBUTEROL 1.25 MG/3 ML NEB RESP TX SCH ×6 (00:25→19:25)
[2018-01-10] MEDS: oxyCODONE/ACETAMINOPHEN 5-325 MG TABLET PO SCH ×4 (01:31→20:54)
[2018-01-10 05:16] LABS: Calcium 7.5 MG/DL (8.5-10.1); Osmolality,Calculated 289.4 MOS/KG (273-304); Potassium 3.2 MMOL/L (3.5-5.1)
[2018-01-10] MEDS: POTASSIUM CHLORIDE 20 MEQ TABLET PO PRN ×2 (06:22→08:56)
[2018-01-10] MEDS: FLUTICASONE 50 MCG NASAL SPRAY 16 GM BOTTLE BOTH NARES SCH ×2 (08:55→20:55)
[2018-01-10] MEDS: NEBIVOLOL 5 MG TABLET PO SCH (08:56)
[2018-01-10] MEDS: CLOPIDOGREL 75 MG TABLET PO SCH (08:56)
[2018-01-10] MEDS: buPROPion 100 MG TABLET PO SCH ×2 (08:57→20:54)
[2018-01-10] MEDS: DOCUSATE SODIUM 100 MG CAPSULE PO SCH ×2 (08:58→20:54)
[2018-01-10] MEDS: PANTOPRAZOLE 40 MG TABLET PO SCH (08:58)
[2018-01-10] MEDS: POTASSIUM CHLORIDE 10 MEQ TABLET PO SCH (08:58)
[2018-01-10] MEDS: PREGABALIN 75 MG CAPSULE PO SCH ×3 (08:58→20:54)
[2018-01-10] MEDS: DILTIAZEM CD 180 MG CAPSULE PO SCH ×2 (08:58→20:54)
[2018-01-10] MEDS: ASPIRIN EC 81 MG TABLET PO SCH (08:59)
[2018-01-10] MEDS: HYDROCORTISONE 10 MG TABLET PO SCH (09:07)
[2018-01-10] MEDS: SODIUM CHLORIDE 0.9% 1,000 ML IV SCH ×2 (09:08→13:43)
[2018-01-10] MEDS ORDERED: FUROSEMIDE 40 MG/4 ML VIAL IV ONE (12:40)
[2018-01-10] MEDS: rOPINIRole 0.25 MG TABLET PO SCH (20:54)
[2018-01-10] MEDS: ENOXAPARIN 40 MG/0.4 ML SYRINGE SUBCUT SCH (20:54)
[2018-01-10] MEDS: DOCUSATE/SENNA 50-8.6 MG TABLET PO SCH (20:54)
[2018-01-10] MEDS: ROSUVASTATIN 20 MG TABLET PO SCH (20:54)
[2018-01-10] MEDS: ISOSORBIDE MONONITRATE 30 MG TABLET PO SCH (20:54)
[2018-01-11] MEDS: LEVALBUTEROL 1.25 MG/3 ML NEB RESP TX SCH ×7 (00:58→23:16)
[2018-01-11] MEDS: oxyCODONE/ACETAMINOPHEN 5-325 MG TABLET PO SCH ×4 (02:13→21:09)
[2018-01-11] MEDS ORDERED: LORazepam 2 MG/1 ML VIAL IV ONE (08:27)
[2018-01-11] MEDS: POTASSIUM CHLORIDE 20 MEQ TABLET PO PRN (08:45)
[2018-01-11] MEDS: CLOPIDOGREL 75 MG TABLET PO SCH (08:46)
[2018-01-11] MEDS: NEBIVOLOL 5 MG TABLET PO SCH (08:46)
[2018-01-11] MEDS: DOCUSATE SODIUM 100 MG CAPSULE PO SCH ×2 (08:46→21:08)
[2018-01-11] MEDS: HYDROCORTISONE 10 MG TABLET PO SCH (08:47)
[2018-01-11] MEDS: POTASSIUM CHLORIDE 10 MEQ TABLET PO SCH (08:47)
[2018-01-11] MEDS: DILTIAZEM CD 180 MG CAPSULE PO SCH ×2 (08:47→21:08)
[2018-01-11] MEDS: PREGABALIN 75 MG CAPSULE PO SCH ×3 (08:48→21:08)
[2018-01-11] MEDS: buPROPion 100 MG TABLET PO SCH ×2 (08:48→21:08)
[2018-01-11] MEDS: PANTOPRAZOLE 40 MG TABLET PO SCH (08:48)
[2018-01-11] MEDS: ASPIRIN EC 81 MG TABLET PO SCH (08:48)
[2018-01-11] MEDS: FLUTICASONE 50 MCG NASAL SPRAY 16 GM BOTTLE BOTH NARES SCH ×2 (09:00→21:09)
[2018-01-11] MEDS: rOPINIRole 0.25 MG TABLET PO SCH (21:08)
[2018-01-11] MEDS: ROSUVASTATIN 20 MG TABLET PO SCH (21:08)
[2018-01-11] MEDS: DOCUSATE/SENNA 50-8.6 MG TABLET PO SCH (21:08)
[2018-01-11] MEDS: ISOSORBIDE MONONITRATE 30 MG TABLET PO SCH (21:08)
[2018-01-11] MEDS: ENOXAPARIN 40 MG/0.4 ML SYRINGE SUBCUT SCH (21:09)
[2018-01-12] MEDS: ONDANSETRON 4 MG/2 ML VIAL IV PRN (01:20)
[2018-01-12] MEDS: oxyCODONE/ACETAMINOPHEN 5-325 MG TABLET PO SCH ×4 (02:47→21:07)
[2018-01-12] MEDS: LEVALBUTEROL 1.25 MG/3 ML NEB RESP TX SCH ×6 (02:55→21:37)
[2018-01-12 05:33] LABS: Calcium 8.2 MG/DL (8.5-10.1); Osmolality,Calculated 277.5 MOS/KG (273-304); Potassium 4.1 MMOL/L (3.5-5.1)
[2018-01-12] MEDS ORDERED: AMIODARONE INJ 150 MG in DEXTROSE 5% 100 ML IV ONE (07:50)
[2018-01-12] MEDS ORDERED: AMIODARONE INJ 450 MG in DEXTROSE 5% 241 ML IV SCH (08:00)
[2018-01-12] MEDS: FLUTICASONE 50 MCG NASAL SPRAY 16 GM BOTTLE BOTH NARES SCH ×2 (09:27→21:25)
[2018-01-12] MEDS: DOCUSATE SODIUM 100 MG CAPSULE PO SCH ×2 (09:30→21:07)
[2018-01-12] MEDS: CLOPIDOGREL 75 MG TABLET PO SCH (09:30)
[2018-01-12] MEDS: HYDROCORTISONE 10 MG TABLET PO SCH (09:30)
[2018-01-12] MEDS: PANTOPRAZOLE 40 MG TABLET PO SCH (09:30)
[2018-01-12] MEDS: PREGABALIN 75 MG CAPSULE PO SCH ×3 (09:35→21:08)
[2018-01-12] MEDS: POTASSIUM CHLORIDE 10 MEQ TABLET PO SCH (09:36)
[2018-01-12] MEDS: ASPIRIN EC 81 MG TABLET PO SCH (09:37)
[2018-01-12] MEDS: NEBIVOLOL 5 MG TABLET PO SCH (09:37)
[2018-01-12] MEDS: DILTIAZEM CD 180 MG CAPSULE PO SCH ×2 (09:37→21:07)
[2018-01-12] MEDS: buPROPion 100 MG TABLET PO SCH ×2 (09:40→21:08)
[2018-01-12] MEDS ORDERED: diphenhydrAMINE CAP 25 MG CAPSULE PO ONE (12:20)
[2018-01-12] MEDS ORDERED: POTASSIUM CHLORIDE RIDER 10 MEQ in PREMIX 1 EACH IV PRN (12:20)
[2018-01-12] MEDS ORDERED: DIAZEPAM 5 MG TABLET PO ONE (12:20)
[2018-01-12] MEDS ORDERED: MAGNESIUM SULF RIDER 2 GM in PREMIX 1 EACH IV PRN (12:20)
[2018-01-12] MEDS ORDERED: SODIUM CHLORIDE 0.45% 1,000 ML IV SCH (12:30)
[2018-01-12] MEDS: ENOXAPARIN 80 MG/0.8 ML SYRINGE SUBCUT SCH ×2 (12:48→23:28)
[2018-01-12] MEDS ORDERED: HEPARIN/NACL 0.9% 2 UNITS/ML 1,000 ML IV ONE (14:10)
[2018-01-12] MEDS ORDERED: LIDOCAINE 1%/EPI INJ 20 ML VIAL ONE (14:36)
[2018-01-12] MEDS ORDERED: MIDAZOLAM 2 MG/2 ML VIAL ONE (14:44)
[2018-01-12] MEDS ORDERED: fentaNYL 100 MCG/2 ML VIAL ONE (14:44)
[2018-01-12] MEDS: AMIODARONE INJ 450 MG in DEXTROSE 5% 241 ML IV SCH (17:17)
[2018-01-12] MEDS: rOPINIRole 0.25 MG TABLET PO SCH (21:06)
[2018-01-12] MEDS: DOCUSATE/SENNA 50-8.6 MG TABLET PO SCH (21:06)
[2018-01-12] MEDS: ROSUVASTATIN 20 MG TABLET PO SCH (21:06)
[2018-01-12] MEDS: ISOSORBIDE MONONITRATE 30 MG TABLET PO SCH (21:07)
[2018-01-13] MEDS: LEVALBUTEROL 1.25 MG/3 ML NEB RESP TX SCH ×3 (00:23→06:50)
[2018-01-13 01:36] LABS: Basophils % 0.2 % (0.0-0.8); Eosinophils # 0.1 10*3/uL (0.0-0.87); Eosinophils % 0.8 % (0.00-10.9); Hemoglobin 11.5 GM/DL (12.0-16.0); Immature Granulocytes % 0.7 %; Immature Granulocytes Absolute 0.06 #; Lymphocytes # 1.6 10*3/uL (1.4-4.0); Lymphocytes % 18.3 % (21.3-54.2); Mean Corpuscular HGB Conc 31.9 GM/DL (32-36); Mean Corpuscular Hemoglobin 33 PG (27-34); Mean Corpuscular Volume 102.6 FL (87-102); Monocytes # 0.6 10*3/uL (0.11-0.8); Monocytes % 6.6 % (1.7-12.7); Neutrophils # 6.6 10*3/uL (1.4-7.4); Neutrophils % 73.4 % (38.7-73.9); Platelet Count 252 T/CUMM (130-400); Red Blood Count 3.51 MC/CUMM (3.8-5.5); Red Cell Distribution Width 13.2 % (9.3-17.3)
[2018-01-13 02:01] LABS: Osmolality,Calculated 280.4 MOS/KG (273-304); Potassium 4.1 MMOL/L (3.5-5.1)
[2018-01-13] MEDS: oxyCODONE/ACETAMINOPHEN 5-325 MG TABLET PO SCH ×4 (02:07→21:33)
[2018-01-13] MEDS: AMIODARONE INJ 450 MG in DEXTROSE 5% 241 ML IV SCH (08:36)
[2018-01-13] MEDS ORDERED: POLYETHYLENE GLYCOL POWDER 17 GM PACK PO ONE (09:00)
[2018-01-13] MEDS: buPROPion 100 MG TABLET PO SCH ×2 (09:38→21:33)
[2018-01-13] MEDS: DILTIAZEM CD 180 MG CAPSULE PO SCH ×2 (09:38→21:32)
[2018-01-13] MEDS: DOCUSATE SODIUM 100 MG CAPSULE PO SCH ×2 (09:39→21:32)
[2018-01-13] MEDS: HYDROCORTISONE 10 MG TABLET PO SCH (09:39)
[2018-01-13] MEDS: ASPIRIN EC 81 MG TABLET PO SCH (09:40)
[2018-01-13] MEDS: PREGABALIN 75 MG CAPSULE PO SCH ×3 (09:40→21:33)
[2018-01-13] MEDS: PANTOPRAZOLE 40 MG TABLET PO SCH (09:40)
[2018-01-13] MEDS: NEBIVOLOL 5 MG TABLET PO SCH (09:40)
[2018-01-13] MEDS: FLUTICASONE 50 MCG NASAL SPRAY 16 GM BOTTLE BOTH NARES SCH ×2 (09:41→21:35)
[2018-01-13] MEDS: POTASSIUM CHLORIDE 10 MEQ TABLET PO SCH (09:41)
[2018-01-13] MEDS: APIXABAN 5 MG TABLET PO SCH ×2 (09:50→21:32)
[2018-01-13] MEDS: AMIODARONE 200 MG TABLET PO SCH (09:50)
[2018-01-13] MEDS: CLOPIDOGREL 75 MG TABLET PO SCH (10:06)
[2018-01-13] MEDS ORDERED: ALBUTEROL 2.5 MG/3 ML NEB RESP TX PRN (10:30)
[2018-01-13] MEDS: ALBUTEROL 2.5 MG/3 ML NEB RESP TX SCH ×3 (10:50→19:24)
[2018-01-13] MEDS ORDERED: BISACODYL 10 MG SUPP RECTAL ONE (14:59)
[2018-01-13] MEDS: ISOSORBIDE MONONITRATE 30 MG TABLET PO SCH (21:32)
[2018-01-13] MEDS: ROSUVASTATIN 20 MG TABLET PO SCH (21:32)
[2018-01-13] MEDS: rOPINIRole 0.25 MG TABLET PO SCH (21:32)
[2018-01-13] MEDS: DOCUSATE/SENNA 50-8.6 MG TABLET PO SCH (21:33)
[2018-01-14] MEDS: ALBUTEROL 2.5 MG/3 ML NEB RESP TX SCH ×7 (00:39→23:26)
[2018-01-14] MEDS: AMIODARONE INJ 450 MG in DEXTROSE 5% 241 ML IV SCH (00:39)
[2018-01-14] MEDS: oxyCODONE/ACETAMINOPHEN 5-325 MG TABLET PO SCH ×4 (02:55→20:09)
[2018-01-14 05:49] LABS: Basophils % 0.2 % (0.0-0.8); Eosinophils # 0.1 10*3/uL (0.0-0.87); Eosinophils % 1.1 % (0.00-10.9); Hematocrit 34.3 VOL% (35.7-47.0); Immature Granulocytes % 0.6 %; Immature Granulocytes Absolute 0.06 #; Lymphocytes % 20.6 % (21.3-54.2); Mean Corpuscular HGB Conc 32.1 GM/DL (32-36); Mean Corpuscular Hemoglobin 33 PG (27-34); Mean Corpuscular Volume 102.7 FL (87-102); Mean Platelet Volume 9.8 FL (9.6-12.0); Monocytes # 0.9 10*3/uL (0.11-0.8); Monocytes % 9.3 % (1.7-12.7); Neutrophils # 6.5 10*3/uL (1.4-7.4); Neutrophils % 68.2 % (38.7-73.9); Platelet Count 248 T/CUMM (130-400); Red Blood Count 3.34 MC/CUMM (3.8-5.5); Red Cell Distribution Width 13.2 % (9.3-17.3); White Blood Count 9.5 T/CUMM (4-12)
[2018-01-14 06:05] LABS: Calcium 7.9 MG/DL (8.5-10.1); Osmolality,Calculated 277.4 MOS/KG (273-304); Potassium 4.3 MMOL/L (3.5-5.1)
[2018-01-14] MEDS: AMIODARONE 200 MG TABLET PO SCH (09:15)
[2018-01-14] MEDS: DILTIAZEM CD 180 MG CAPSULE PO SCH ×2 (09:15→20:09)
[2018-01-14] MEDS: PREGABALIN 75 MG CAPSULE PO SCH ×3 (09:15→20:08)
[2018-01-14] MEDS: PANTOPRAZOLE 40 MG TABLET PO SCH (09:15)
[2018-01-14] MEDS: buPROPion 100 MG TABLET PO SCH ×2 (09:15→20:09)
[2018-01-14] MEDS: DOCUSATE SODIUM 100 MG CAPSULE PO SCH ×2 (09:15→20:09)
[2018-01-14] MEDS: HYDROCORTISONE 10 MG TABLET PO SCH (09:15)
[2018-01-14] MEDS: POTASSIUM CHLORIDE 10 MEQ TABLET PO SCH (09:15)
[2018-01-14] MEDS: NEBIVOLOL 5 MG TABLET PO SCH (09:15)
[2018-01-14] MEDS: ENOXAPARIN 40 MG/0.4 ML SYRINGE SUBCUT SCH (09:16)
[2018-01-14] MEDS: ASPIRIN EC 81 MG TABLET PO SCH (09:16)
[2018-01-14] MEDS: FLUTICASONE 50 MCG NASAL SPRAY 16 GM BOTTLE BOTH NARES SCH ×2 (09:17→20:10)
[2018-01-14] MEDS: DOCUSATE/SENNA 50-8.6 MG TABLET PO SCH (20:08)
[2018-01-14] MEDS: ISOSORBIDE MONONITRATE 30 MG TABLET PO SCH (20:09)
[2018-01-14] MEDS: ROSUVASTATIN 20 MG TABLET PO SCH (20:09)
[2018-01-14] MEDS: rOPINIRole 0.25 MG TABLET PO SCH (20:10)
[2018-01-15] MEDS: oxyCODONE/ACETAMINOPHEN 5-325 MG TABLET PO SCH ×4 (02:14→21:04)
[2018-01-15] MEDS: ALBUTEROL 2.5 MG/3 ML NEB RESP TX SCH ×5 (03:05→20:35)
[2018-01-15 05:01] LABS: Basophils % 0.4 % (0.0-0.8); Eosinophils # 0.1 10*3/uL (0.0-0.87); Eosinophils % 1.3 % (0.00-10.9); Hematocrit 33.5 VOL% (35.7-47.0); Hemoglobin 10.6 GM/DL (12.0-16.0); Immature Granulocytes % 0.7 %; Immature Granulocytes Absolute 0.06 #; Lymphocytes # 1.9 10*3/uL (1.4-4.0); Lymphocytes % 22.6 % (21.3-54.2); Mean Corpuscular HGB Conc 31.6 GM/DL (32-36); Mean Corpuscular Hemoglobin 32 PG (27-34); Mean Corpuscular Volume 102.1 FL (87-102); Mean Platelet Volume 9.6 FL (9.6-12.0); Monocytes # 0.9 10*3/uL (0.11-0.8); Monocytes % 10.6 % (1.7-12.7); Neutrophils # 5.4 10*3/uL (1.4-7.4); Neutrophils % 64.4 % (38.7-73.9); Platelet Count 256 T/CUMM (130-400); Red Blood Count 3.28 MC/CUMM (3.8-5.5); Red Cell Distribution Width 13.1 % (9.3-17.3); White Blood Count 8.4 T/CUMM (4-12)
[2018-01-15 05:30] LABS: Calcium 8.5 MG/DL (8.5-10.1); Osmolality,Calculated 278.3 MOS/KG (273-304)
[2018-01-15] MEDS ORDERED: LACTULOSE 20 GM/30 ML UDCUP PO PRN (07:51)
[2018-01-15] MEDS ORDERED: BISACODYL 10 MG SUPP RECTAL PRN (07:52)
[2018-01-15] MEDS: ENOXAPARIN 40 MG/0.4 ML SYRINGE SUBCUT SCH (09:10)
[2018-01-15] MEDS: DILTIAZEM CD 180 MG CAPSULE PO SCH ×2 (09:11→21:03)
[2018-01-15] MEDS: HYDROCORTISONE 10 MG TABLET PO SCH (09:11)
[2018-01-15] MEDS: PANTOPRAZOLE 40 MG TABLET PO SCH (09:11)
[2018-01-15] MEDS: NEBIVOLOL 5 MG TABLET PO SCH (09:11)
[2018-01-15] MEDS: DOCUSATE SODIUM 100 MG CAPSULE PO SCH ×2 (09:11→21:03)
[2018-01-15] MEDS: AMIODARONE 200 MG TABLET PO SCH (09:12)
[2018-01-15] MEDS: POTASSIUM CHLORIDE 10 MEQ TABLET PO SCH (09:12)
[2018-01-15] MEDS: ASPIRIN EC 81 MG TABLET PO SCH (09:13)
[2018-01-15] MEDS: PREGABALIN 75 MG CAPSULE PO SCH ×4 (09:16→21:04)
[2018-01-15] MEDS: buPROPion 100 MG TABLET PO SCH ×2 (09:19→21:04)
[2018-01-15] MEDS: FLUTICASONE 50 MCG NASAL SPRAY 16 GM BOTTLE BOTH NARES SCH ×2 (09:19→21:04)
[2018-01-15] MEDS ORDERED: FUROSEMIDE 20 MG/2 ML VIAL IV ONE (11:19)
[2018-01-15] MEDS: ROSUVASTATIN 20 MG TABLET PO SCH (21:03)
[2018-01-15] MEDS: DOCUSATE/SENNA 50-8.6 MG TABLET PO SCH (21:03)
[2018-01-15] MEDS: ISOSORBIDE MONONITRATE 30 MG TABLET PO SCH (21:03)
[2018-01-15] MEDS: rOPINIRole 0.25 MG TABLET PO SCH (21:03)
[2018-01-16] MEDS: ALBUTEROL 2.5 MG/3 ML NEB RESP TX SCH ×7 (00:17→23:55)
[2018-01-16 05:10] LABS: Basophils % 0.5 % (0.0-0.8); Eosinophils # 0.1 10*3/uL (0.0-0.87); Eosinophils % 0.9 % (0.00-10.9); Hemoglobin 10.7 GM/DL (12.0-16.0); Immature Granulocytes Absolute 0.17 #; Lymphocytes # 2.2 10*3/uL (1.4-4.0); Lymphocytes % 25.8 % (21.3-54.2); Mean Corpuscular HGB Conc 31.5 GM/DL (32-36); Mean Corpuscular Hemoglobin 33 PG (27-34); Mean Corpuscular Volume 104.6 FL (87-102); Mean Platelet Volume 9.5 FL (9.6-12.0); Monocytes # 0.7 10*3/uL (0.11-0.8); Monocytes % 8.1 % (1.7-12.7); Neutrophils # 5.4 10*3/uL (1.4-7.4); Neutrophils % 62.7 % (38.7-73.9); Platelet Count 260 T/CUMM (130-400); Red Blood Count 3.25 MC/CUMM (3.8-5.5); Red Cell Distribution Width 13.1 % (9.3-17.3); White Blood Count 8.6 T/CUMM (4-12)
[2018-01-16 05:40] LABS: Calcium 8.1 MG/DL (8.5-10.1); Osmolality,Calculated 280.1 MOS/KG (273-304); Potassium 3.9 MMOL/L (3.5-5.1)
[2018-01-16] MEDS ORDERED: LIDOCAINE 100 MG/5 ML SYRINGE ONE (10:29)
[2018-01-16] MEDS ORDERED: PROPOFOL 200 MG/20 ML VIAL IV ONE (10:29)
[2018-01-16] MEDS ORDERED: GLYCOPYRROLATE 0.4 MG/2 ML VIAL ONE (10:29)
[2018-01-16] MEDS: LACTULOSE 20 GM/30 ML UDCUP PO PRN ×3 (13:52→22:33)
[2018-01-16] MEDS: HYDROCORTISONE 10 MG TABLET PO SCH (13:53)
[2018-01-16] MEDS: buPROPion 100 MG TABLET PO SCH ×2 (13:53→21:01)
[2018-01-16] MEDS: DOCUSATE SODIUM 100 MG CAPSULE PO SCH ×2 (13:53→21:01)
[2018-01-16] MEDS: AMIODARONE 200 MG TABLET PO SCH (13:54)
[2018-01-16] MEDS: ASPIRIN EC 81 MG TABLET PO SCH (13:54)
[2018-01-16] MEDS: DILTIAZEM CD 180 MG CAPSULE PO SCH ×2 (13:54→21:02)
[2018-01-16] MEDS: PANTOPRAZOLE 40 MG TABLET PO SCH (13:56)
[2018-01-16] MEDS: FLUTICASONE 50 MCG NASAL SPRAY 16 GM BOTTLE BOTH NARES SCH ×2 (13:56→21:19)
[2018-01-16] MEDS: NEBIVOLOL 5 MG TABLET PO SCH (13:56)
[2018-01-16] MEDS: POTASSIUM CHLORIDE 10 MEQ TABLET PO SCH (13:56)
[2018-01-16] MEDS: ACETAMINOPHEN 325 MG TABLET PO PRN (14:10)
[2018-01-16] MEDS: ROSUVASTATIN 20 MG TABLET PO SCH (21:01)
[2018-01-16] MEDS: ISOSORBIDE MONONITRATE 30 MG TABLET PO SCH (21:01)
[2018-01-16] MEDS: DOCUSATE/SENNA 50-8.6 MG TABLET PO SCH (21:01)
[2018-01-16] MEDS: rOPINIRole 0.25 MG TABLET PO SCH (21:01)
[2018-01-16] MEDS: ONDANSETRON 4 MG/2 ML VIAL IV PRN (21:02)
[2018-01-16] MEDS ORDERED: ALUMINUM/MAGNES/SIMETH MAX STR 30 ML UDCUP PO PRN (21:10)
[2018-01-17] MEDS: ALBUTEROL 2.5 MG/3 ML NEB RESP TX SCH ×5 (03:50→19:28)
[2018-01-17] MEDS: DILTIAZEM CD 180 MG CAPSULE PO SCH ×2 (09:19→21:04)
[2018-01-17] MEDS: HYDROCORTISONE 10 MG TABLET PO SCH (09:20)
[2018-01-17] MEDS: NEBIVOLOL 5 MG TABLET PO SCH (09:20)
[2018-01-17] MEDS: AMIODARONE 200 MG TABLET PO SCH (09:20)
[2018-01-17] MEDS: ASPIRIN EC 81 MG TABLET PO SCH (09:20)
[2018-01-17] MEDS: buPROPion 100 MG TABLET PO SCH ×2 (09:20→21:03)
[2018-01-17] MEDS: DOCUSATE SODIUM 100 MG CAPSULE PO SCH ×2 (09:20→21:03)
[2018-01-17] MEDS: POTASSIUM CHLORIDE 10 MEQ TABLET PO SCH (09:21)
[2018-01-17] MEDS: PANTOPRAZOLE 40 MG TABLET PO SCH (09:21)
[2018-01-17] MEDS: FLUTICASONE 50 MCG NASAL SPRAY 16 GM BOTTLE BOTH NARES SCH ×2 (09:21→21:06)
[2018-01-17] MEDS: APIXABAN 5 MG TABLET PO SCH ×2 (11:34→21:04)
[2018-01-17] MEDS: LACTULOSE 20 GM/30 ML UDCUP PO PRN ×2 (11:35→21:03)
[2018-01-17] MEDS: ACETAMINOPHEN 325 MG TABLET PO PRN (14:00)
[2018-01-17] MEDS: DOCUSATE/SENNA 50-8.6 MG TABLET PO SCH (21:03)
[2018-01-17] MEDS: ROSUVASTATIN 20 MG TABLET PO SCH (21:03)
[2018-01-17] MEDS: ISOSORBIDE MONONITRATE 30 MG TABLET PO SCH (21:04)
[2018-01-17] MEDS: rOPINIRole 0.25 MG TABLET PO SCH (21:04)
[2018-01-17] MEDS: BENZONATATE 100 MG CAPSULE PO SCH (23:15)
[2018-01-18] MEDS: ALBUTEROL 2.5 MG/3 ML NEB RESP TX SCH ×3 (00:28→08:28)
[2018-01-18 05:23] LABS: Basophils % 0.4 % (0.0-0.8); Eosinophils # 0.1 10*3/uL (0.0-0.87); Eosinophils % 0.7 % (0.00-10.9); Hematocrit 36.5 VOL% (35.7-47.0); Hemoglobin 11.5 GM/DL (12.0-16.0); Immature Granulocytes Absolute 0.11 #; Lymphocytes # 2.1 10*3/uL (1.4-4.0); Lymphocytes % 18.9 % (21.3-54.2); Mean Corpuscular HGB Conc 31.5 GM/DL (32-36); Mean Corpuscular Hemoglobin 33 PG (27-34); Mean Corpuscular Volume 104.6 FL (87-102); Mean Platelet Volume 9.5 FL (9.6-12.0); Monocytes # 0.8 10*3/uL (0.11-0.8); Monocytes % 7.4 % (1.7-12.7); Neutrophils # 7.8 10*3/uL (1.4-7.4); Neutrophils % 71.6 % (38.7-73.9); Platelet Count 320 T/CUMM (130-400); Red Blood Count 3.49 MC/CUMM (3.8-5.5); Red Cell Distribution Width 13.2 % (9.3-17.3)
[2018-01-18 05:49] LABS: Calcium 8.2 MG/DL (8.5-10.1); Osmolality,Calculated 282.8 MOS/KG (273-304); Potassium 3.7 MMOL/L (3.5-5.1)
[2018-01-18] MEDS: ONDANSETRON 4 MG/2 ML VIAL IV PRN (05:56)
[2018-01-18] MEDS: BENZONATATE 100 MG CAPSULE PO SCH (08:56)
[2018-01-18] MEDS: APIXABAN 5 MG TABLET PO SCH (08:56)
[2018-01-18] MEDS: HYDROCORTISONE 10 MG TABLET PO SCH (08:57)
[2018-01-18] MEDS: ASPIRIN EC 81 MG TABLET PO SCH (08:57)
[2018-01-18] MEDS: DOCUSATE SODIUM 100 MG CAPSULE PO SCH (08:57)
[2018-01-18] MEDS: buPROPion 100 MG TABLET PO SCH (08:57)
[2018-01-18] MEDS: POTASSIUM CHLORIDE 10 MEQ TABLET PO SCH (08:57)
[2018-01-18] MEDS: PANTOPRAZOLE 40 MG TABLET PO SCH (08:58)
[2018-01-18] MEDS: NEBIVOLOL 5 MG TABLET PO SCH (08:58)
[2018-01-18] MEDS: FLUTICASONE 50 MCG NASAL SPRAY 16 GM BOTTLE BOTH NARES SCH (08:58)
[2018-01-18] MEDS: DILTIAZEM CD 180 MG CAPSULE PO SCH (08:58)
[2018-01-18] MEDS: AMIODARONE 200 MG TABLET PO SCH (08:58)
[2018-01-18 13:07] VITALS: BP 124/76
== END 2018-01-18 13:21 | disposition home or self-care (01) | DRG 380 ==
LOC: N.ED 08:40 → N.EDINP 08:40 → N.TELEN 12:23
PROVIDERS: ADMIT Internal Medicine; ATTEND Internal Medicine
PROC: CLCCHCL (ICD-10-PCS; 2018-01-12 15:15)